=== PATIENT | female | born 1965 | race Caucasian/White ===

== ENCOUNTER 2016-07-15 01:26 | Emergency (ER) | payer BC ==
[2016-07-15] MEDS ORDERED: SODIUM CHLORIDE 0.9% 1,000 ML IV ONE (01:47)
[2016-07-15] MEDS ORDERED: PROMETHAZINE SUPPOSITORY 25 MG SUPP RECTAL STA (01:48)
[2016-07-15 02:08] LABS: Basophils # (A) 0.1 k/uL (0-0.2); Basophils % (A) 0 %; CH 29.5; CHCM 32.9; Eosinophils % (A) 0 %; HCT 40.6 % (34.0-46.0); Luc # (Auto) 0.13; Luc % (Auto) 1; Lymphocytes % (A) 14 %; MCH 28.9 pg (25.0-35.0); MCHC 32.1 g/dL (31.0-37.0); MCV 90.2 fL (80.0-100.0); Mean Platelet Volume 7.9; Monocytes # (A) 0.4 k/uL (0-1.0); Monocytes % (A) 3 %; Neutrophils # (A) 11.5 k/uL (1.3-7.7); Neutrophils % (A) 81 %; RBC 4.51 m/uL (3.80-5.40); WBC 14.1 k/uL (3.8-10.6); WBC (Perox) 13.86
[2016-07-15] MEDS ORDERED: ONDANSETRON 4 MG/2 ML VIAL IVP STA (02:15)
[2016-07-15] MEDS ORDERED: DICYCLOMINE 10 MG/ML 2 ML AMP IM STA ×2 (02:16)
[2016-07-15] MEDS ORDERED: LORazepam 2 MG/ML SYRINGE IV STA (02:16)
[2016-07-15] MEDS ORDERED: FAMOTIDINE 20 MG/2 ML VIAL IV STA (02:17)
[2016-07-15 02:18] LABS: ALT 37 U/L (9-52); AST 32 U/L (14-36); Alkaline Phosphatase 163 U/L (38-126); Amylase 120 U/L (30-110); Anion Gap 14 mmol/L; Blood Urea Nitrogen 9 mg/dL (7-17); Calcium 10.7 mg/dL (8.4-10.2); Carbon Dioxide 25 mmol/L (22-30); Chloride 107 mmol/L (98-107); Glucose 167 mg/dL (74-99); Non-African American GFR(MDRD) >60 (>60 ml/min/1.73 sqM); Potassium 3.6 mmol/L (3.5-5.1); Sodium 146 mmol/L (137-145); Total Bilirubin 0.7 mg/dL (0.2-1.3); Total Protein 9.4 g/dL (6.3-8.2)
--- NOTE | 2016-07-15 02:42 | ED ---
Nausea/Vomiting/Diarrhea HPI - General Chief complaint: Nausea/Vomiting/Diarrhea Stated complaint: vomiting Time Seen by Provider: 07/15/16 01:46 Source: patient, family, RN notes reviewed Mode of arrival: wheelchair - History of Present Illness Initial comments: Patient is a 51-year-old female presents to emergency in for evaluation of cyclic vomiting. Patient's is present with patient. Patient hesitates the patient has a history cyclic vomiting and irritable bowel syndrome. Patient 's states the patient does have episodes of abdominal pain, vomiting and diarrhea. Patient's states that patient is complaining of severe pain with nonstop vomiting and diarrhea. Patient denies recent travel outside the country. Patient denies trying new foods. Patient does admit to smoking marijuana. Patient denies chest pain or shortness of breath. Patient denies fevers or chills. - Related Data Home Medications Medication Instructions Recorded Confirmed ALPRAZolam [Xanax] 0.25 mg PO QID PRN 06/30/15 10/16/15 Acetaminophen-Codeine 300-30mg 1 - 2 tab PO Q4H PRN 06/30/15 10/16/15 [Tylenol #3] Diclofenac Sodium [Voltaren] 75 mg PO BID 06/30/15 10/16/15 Escitalopram [Lexapro] 20 mg PO DAILY 06/30/15 10/16/15 Pantoprazole [Protonix] 40 mg PO BID 06/30/15 10/16/15 Promethazine [Phenergan] 25 mg PO Q4HR PRN 06/30/15 10/16/15 Solifenacin Succinate [Vesicare] 10 mg PO DAILY 06/30/15 10/16/15 Previous Rx's Medication Instructions Recorded Ondansetron Odt [Zofran ODT] 4 mg PO Q8HR PRN #10 tab 10/17/15 Allergies Allergy/AdvReac Type Severity Reaction Status Date / Time morphine AdvReac Nausea & Verified 07/15/16 01:36 Vomiting Review of Systems ROS Statement: Those systems with pertinent positive or pertinent negative responses have been documented in the HPI. ROS Other: All systems not noted in ROS Statement are negative. Past Medical History Past Medical History: GERD/Reflux Additional Past Medical History / Comment(s): cyclic vomiting syndrome History of Any Multi-Drug Resistant Organisms: Unobtainable Past Surgical History: No Surgical Hx Reported Past Psychological History: Unable to Obtain Smoking Status: Unknown if ever smoked Past Alcohol Use History: Unable to Obtain Past Drug Use History: Unable to Obtain General Exam - General Exam Comments Initial Comments: Sitting in exam room, dry heaving. General appearance: alert, anxious Head exam: Present: atraumatic, normocephalic, normal inspection Eye exam: Present: normal appearance ENT exam: Present: normal exam Neck exam: Present: normal inspection Respiratory exam: Present: normal lung sounds bilaterally. Absent: respiratory distress Cardiovascular Exam: Present: regular rate, normal rhythm, normal heart sounds GI/Abdominal exam: Present: soft, tenderness (Diffuse), normal bowel sounds. Absent: distended, guarding, rebound, rigid Extremities exam: Present: normal inspection Back exam: Present: normal inspection Neurological exam: Present: alert, oriented X3, CN II-XII intact, normal gait Psychiatric exam: Present: normal affect, normal mood Skin exam: Present: warm, dry, intact, normal color. Absent: rash Course Vital Signs 07/15/16 07/15/16 01:34 04:14 Temperature 97.4 F L 98.1 F Pulse Rate 76 81 Respiratory 18 16 Rate Blood Pressure 137/90 106/58 O2 Sat by Pulse 98 98 Oximetry Medical Decision Making - Medical Decision Making Patient is a 51-year-old female presents emergency room for evaluation of cyclic vomiting. Patient very anxious on arrival. Patient giving medication and is feeling a lot better. Patient denies any significant pain. Patient denies any nausea. Offered further workup/imaging. Patient declined at this time and states she feels better like to be discharged home. Return parameters discussed. Case discussed Dr. Gastelum. - Lab Data Result diagrams: 07/15/16 01:45 07/15/16 01:45 Lab Results 07/15/16 07/15/16 07/15/16 Range/Units 01:45 01:45 01:45 WBC 14.1 H (3.8-10.6) k/uL RBC 4.51 (3.80-5.40) m/uL Hgb 13.0 (11.4-16.0) gm/dL Hct 40.6 (34.0-46.0) % MCV 90.2 (80.0-100.0) fL MCH 28.9 (25.0-35.0) pg MCHC 32.1 (31.0-37.0) g/dL RDW 14.0 (11.5-15.5) % Plt Count 243 (150-450) k/uL Neutrophils % 81 % Lymphocytes % 14 % Monocytes % 3 % Eosinophils % 0 % Basophils % 0 % Neutrophils # 11.5 H (1.3-7.7) k/uL Lymphocytes # 2.0 (1.0-4.8) k/uL Monocytes # 0.4 (0-1.0) k/uL Eosinophils # 0.0 (0-0.7) k/uL Basophils # 0.1 (0-0.2) k/uL Sodium 146 H (137-145) mmol/L Potassium 3.6 (3.5-5.1) mmol/L Chloride 107 (98-107) mmol/L Carbon Dioxide 25 (22-30) mmol/L Anion Gap 14 mmol/L BUN 9 (7-17) mg/dL Creatinine 0.60 (0.52-1.04) mg/dL Est GFR (MDRD) Af Amer >60 (>60 ml/min/1.73 sqM) Est GFR (MDRD) Non-Af >60 (>60 ml/min/1.73 sqM) Glucose 167 H (74-99) mg/dL Calcium 10.7 H (8.4-10.2) mg/dL Magnesium 1.9 (1.6-2.3) mg/dL Total Bilirubin 0.7 (0.2-1.3) mg/dL AST 32 (14-36) U/L ALT 37 (9-52) U/L Alkaline Phosphatase 163 H (38-126) U/L Total Protein 9.4 H (6.3-8.2) g/dL Albumin 5.1 H (3.5-5.0) g/dL Amylase 120 H (30-110) U/L Lipase 105 (23-300) U/L Disposition Clinical Impression: Cyclic vomiting syndrome Disposition: HOME SELF-CARE Condition: Good Instructions: Acute Nausea and Vomiting (ED) Additional Instructions: Continue with at home medications. Drink plenty of fluids. Please follow up with primary care provider in 1-2 days. If any new symptom arises or symptoms worsen, return to ER as soon as possible. Referrals: Dequan Allen MD [Primary Care Provider] - 1-2 days Time of Disposition: 03:47
[2016-07-15 04:21] VITALS: BP 106/58; PULSE 81; RESP 16; TEMP 98.1
== END 2016-07-15 04:17 | disposition home or self-care (01) ==
LOC: EC 01:26
DX: G43.A0 Cyclical vomiting, in migraine, not intractable (principal); Z88.5 Allergy status to narcotic agent; Z79.899 Other long term (current) drug therapy
CPT/HCPCS: 99284; 96372; 96374; 96375 ×2; 96361; 36415; 80053; 82150; 83690; 83735; 85025; J2060; J0500; J2405

== ENCOUNTER 2016-07-16 05:54 | Emergency (ER) | payer BC ==
[2016-07-16 06:03] VITALS: RESP 18
[2016-07-16] MEDS ORDERED: DICYCLOMINE 10 MG/ML 2 ML AMP IM STA (06:15)
[2016-07-16] MEDS ORDERED: SODIUM CHLORIDE 0.9% 1,000 ML IV STA (06:15)
[2016-07-16] MEDS ORDERED: ONDANSETRON 4 MG/2 ML VIAL IVP STA (06:15)
[2016-07-16] MEDS ORDERED: FAMOTIDINE 20 MG/2 ML VIAL IV STA (06:16)
[2016-07-16] MEDS ORDERED: LORazepam 2 MG/ML SYRINGE IV STA (06:16)
--- NOTE | 2016-07-16 06:19 | ED ---
General Adult HPI - General Source: patient, RN notes reviewed Mode of arrival: wheelchair Limitations: no limitations <Ezio Brand - Last Filed: 07/16/16 06:16> <Josef Motta - Last Filed: 07/16/16 09:01> - General Chief complaint: Abdominal Pain Stated complaint: VOMITING Time Seen by Provider: 07/16/16 06:05 - History of Present Illness Initial comments: Patient is a pleasant 51-year-old female presenting to the emergency department complaining of abdominal discomfort. Patient was in the emergency department yesterday with similar symptoms. Patient does have a history of cyclic vomiting. Patient has had nausea but is only dry heaving at this time. Patient has left sided abdominal discomfort. No fevers. No constipation or diarrhea. (Ezio Brand) - Related Data Home Medications Medication Instructions Recorded Confirmed ALPRAZolam [Xanax] 0.25 mg PO QID PRN 06/30/15 07/16/16 Diclofenac Sodium [Voltaren] 75 mg PO BID 06/30/15 07/16/16 Escitalopram [Lexapro] 20 mg PO DAILY 06/30/15 07/16/16 Pantoprazole [Protonix] 40 mg PO BID 06/30/15 07/16/16 Atorvastatin [Lipitor] 80 mg PO HS 07/16/16 07/16/16 Temazepam [Restoril] 15 mg PO HS PRN 07/16/16 07/16/16 Allergies Allergy/AdvReac Type Severity Reaction Status Date / Time morphine AdvReac Nausea & Verified 07/16/16 07:30 Vomiting bee stings Allergy Unknown Uncoded 07/16/16 06:03 Review of Systems ROS Other: All systems not noted in ROS Statement are negative. Constitutional: Denies: fever Eyes: Denies: eye pain ENT: Denies: ear pain Respiratory: Denies: cough Cardiovascular: Denies: chest pain Endocrine: Denies: fatigue Gastrointestinal: Reports: abdominal pain, nausea, vomiting Genitourinary: Denies: dysuria Musculoskeletal: Denies: back pain Skin: Denies: rash Neurological: Denies: weakness <Ezio Brand - Last Filed: 07/16/16 06:16> ROS Other: All systems not noted in ROS Statement are negative. <Josef Motta - Last Filed: 07/16/16 09:01> ROS Statement: Those systems with pertinent positive or pertinent negative responses have been documented in the HPI. Past Medical History Past Medical History: GERD/Reflux Additional Past Medical History / Comment(s): cyclic vomiting syndrome; IBS; Gastroparesis History of Any Multi-Drug Resistant Organisms: None Reported Past Surgical History: Appendectomy, Hysterectomy Past Psychological History: Anxiety Smoking Status: Current every day smoker Past Alcohol Use History: None Reported Past Drug Use History: None Reported <Ezio Brand - Last Filed: 07/16/16 06:16> General Exam Limitations: no limitations General appearance: alert, in no apparent distress Head exam: Present: atraumatic Eye exam: Present: normal appearance, PERRL ENT exam: Present: normal oropharynx Neck exam: Present: normal inspection Respiratory exam: Present: normal lung sounds bilaterally Cardiovascular Exam: Present: regular rate, normal rhythm Expanded Peripheral pulses: 2+: Dorsalis Pedis (R), Dorsalis Pedis (L) GI/Abdominal exam: Present: soft, tenderness (Moderate left sided tenderness), normal bowel sounds. Absent: distended, guarding, rebound, rigid, pulsatile mass Extremities exam: Present: normal inspection Neurological exam: Present: alert Psychiatric exam: Present: normal affect, normal mood Skin exam: Absent: rash <Ezio Brand - Last Filed: 07/16/16 06:16> Course <Ezio Brand - Last Filed: 07/16/16 06:16> <Josef Motta - Last Filed: 07/16/16 09:01> Vital Signs 07/16/16 07/16/16 06:00 08:57 Temperature 98.1 F 98.6 F Pulse Rate 82 70 Respiratory 18 18 Rate Blood Pressure 100/61 106/58 O2 Sat by Pulse 97 Oximetry - Reevaluation(s) Reevaluation #1: 07/16/16 06:17 Patient states symptoms are chronic and has had multiple evaluations including multiple CT scans. Patient does not want computed tomography scan at this time. Patient does not want narcotics at this time. Patient does request bentyl and something to help her relax. (Ezio Brand) Reevaluation #2: 07/16/16 09:00 At this point patient's symptoms seem to be much improved, resting comfortably ( Josef Motta) Medical Decision Making <Ezio Brand - Last Filed: 07/16/16 06:16> - Lab Data Result diagrams: 07/16/16 06:51 07/16/16 06:51 - Radiology Data Radiology results: report reviewed (X-ray KUB is negative for acute disease), image reviewed <Josef Motta - Last Filed: 07/16/16 09:01> - Medical Decision Making 51 year old female here with history of cyclic vomiting, and he was sick vomiting syndrome exacerbation, symptoms of this point improved. Patient will be discharged home, (Josef Motta) - Lab Data Lab Results 07/16/16 07/16/16 07/16/16 Range/Units 06:34 06:51 06:51 WBC 9.4 (3.8-10.6) k/uL RBC 3.97 (3.80-5.40) m/uL Hgb 11.7 (11.4-16.0) gm/dL Hct 35.9 (34.0-46.0) % MCV 90.5 (80.0-100.0) fL MCH 29.4 (25.0-35.0) pg MCHC 32.5 (31.0-37.0) g/dL RDW 14.0 (11.5-15.5) % Plt Count 216 (150-450) k/uL Neutrophils % 46 % Lymphocytes % 45 % Monocytes % 4 % Eosinophils % 2 % Basophils % 1 % Neutrophils # 4.4 (1.3-7.7) k/uL Lymphocytes # 4.3 (1.0-4.8) k/uL Monocytes # 0.4 (0-1.0) k/uL Eosinophils # 0.1 (0-0.7) k/uL Basophils # 0.1 (0-0.2) k/uL PT (9.0-12.0) sec INR (<1.1) APTT (22.0-30.0) sec Sodium 142 (137-145) mmol/L Potassium 3.9 (3.5-5.1) mmol/L Chloride 107 (98-107) mmol/L Carbon Dioxide 26 (22-30) mmol/L Anion Gap 9 mmol/L BUN 8 (7-17) mg/dL Creatinine 0.63 (0.52-1.04) mg/dL Est GFR (MDRD) Af Amer >60 (>60 ml/min/1.73 sqM) Est GFR (MDRD) Non-Af >60 (>60 ml/min/1.73 sqM) Glucose 91 (74-99) mg/dL Calcium 9.4 (8.4-10.2) mg/dL Total Bilirubin 0.5 (0.2-1.3) mg/dL AST 29 (14-36) U/L ALT 28 (9-52) U/L Alkaline Phosphatase 101 (38-126) U/L Total Protein 7.8 (6.3-8.2) g/dL Albumin 4.3 (3.5-5.0) g/dL Amylase 93 (30-110) U/L Lipase 124 (23-300) U/L Urine Color Light Yellow Urine Appearance Clear (Clear) Urine pH 6.0 (5.0-8.0) Ur Specific [place] 1.003 (1.001-1.035) Urine Protein Negative (Negative) Urine Glucose (UA) Negative (Negative) Urine Ketones Negative (Negative) Urine Blood Negative (Negative) Urine Nitrite Negative (Negative) Urine Bilirubin Negative (Negative) Urine Urobilinogen <2.0 (<2.0) mg/dL Ur Leukocyte Esterase Negative (Negative) 07/16/16 Range/Units 06:51 WBC (3.8-10.6) k/uL RBC (3.80-5.40) m/uL Hgb (11.4-16.0) gm/dL Hct (34.0-46.0) % MCV (80.0-100.0) fL MCH (25.0-35.0) pg MCHC (31.0-37.0) g/dL RDW (11.5-15.5) % Plt Count (150-450) k/uL Neutrophils % % Lymphocytes % % Monocytes % % Eosinophils % % Basophils % % Neutrophils # (1.3-7.7) k/uL Lymphocytes # (1.0-4.8) k/uL Monocytes # (0-1.0) k/uL Eosinophils # (0-0.7) k/uL Basophils # (0-0.2) k/uL PT 9.8 (9.0-12.0) sec INR 1.0 (<1.1) APTT 23.6 (22.0-30.0) sec Sodium (137-145) mmol/L Potassium (3.5-5.1) mmol/L Chloride (98-107) mmol/L Carbon Dioxide (22-30) mmol/L Anion Gap mmol/L BUN (7-17) mg/dL Creatinine (0.52-1.04) mg/dL Est GFR (MDRD) Af Amer (>60 ml/min/1.73 sqM) Est GFR (MDRD) Non-Af (>60 ml/min/1.73 sqM) Glucose (74-99) mg/dL Calcium (8.4-10.2) mg/dL Total Bilirubin (0.2-1.3) mg/dL AST (14-36) U/L ALT (9-52) U/L Alkaline Phosphatase (38-126) U/L Total Protein (6.3-8.2) g/dL Albumin (3.5-5.0) g/dL Amylase (30-110) U/L Lipase (23-300) U/L Urine Color Urine Appearance (Clear) Urine pH (5.0-8.0) Ur Specific [place] (1.001-1.035) Urine Protein (Negative) Urine Glucose (UA) (Negative) Urine Ketones (Negative) Urine Blood (Negative) Urine Nitrite (Negative) Urine Bilirubin (Negative) Urine Urobilinogen (<2.0) mg/dL Ur Leukocyte Esterase (Negative) Disposition <Ezio Brand - Last Filed: 07/16/16 06:16> <Josef Motta - Last Filed: 07/16/16 09:01> Clinical Impression: Cyclic vomiting syndrome Disposition: HOME SELF-CARE Condition: Good Instructions: Acute Nausea and Vomiting (ED) Referrals: Dequan Allen MD [Primary Care Provider] - 1-2 days
[2016-07-16 07:04] LABS: Basophils # (A) 0.1 k/uL (0-0.2); Basophils % (A) 1 %; CH 29.5; CHCM 32.8; Eosinophils # (A) 0.1 k/uL (0-0.7); Eosinophils % (A) 2 %; HCT 35.9 % (34.0-46.0); HDW 2.35; HGB 11.7 gm/dL (11.4-16.0); Luc # (Auto) 0.19; Luc % (Auto) 2; Lymphocytes # (A) 4.3 k/uL (1.0-4.8); Lymphocytes % (A) 45 %; MCH 29.4 pg (25.0-35.0); MCHC 32.5 g/dL (31.0-37.0); MCV 90.5 fL (80.0-100.0); Mean Platelet Volume 7.7; Monocytes # (A) 0.4 k/uL (0-1.0); Monocytes % (A) 4 %; Neutrophils # (A) 4.4 k/uL (1.3-7.7); Neutrophils % (A) 46 %; RBC 3.97 m/uL (3.80-5.40); WBC 9.4 k/uL (3.8-10.6); WBC (Perox) 9.78
[2016-07-16 07:04] LABS: Appearance,Urine Clear (Clear); Bilirubin,Urine Negative (Negative); Glucose,Urine (UA) Negative (Negative); Ketones,Urine Negative (Negative); Leukocyte Esterase,Urine Negative (Negative); Nitrite,Urine Negative (Negative); Protein,Urine Negative (Negative); Specific Gravity,Urine 1.003 (1.001-1.035); UA Billing (MACRO vs. MICRO) CHEM; Urobilinogen,Urine <2.0 mg/dL (<2.0)
[2016-07-16 07:09] LABS: Partial Thromboplastin Time 23.6 sec (22.0-30.0); Prothrombin Time 9.8 sec (9.0-12.0)
[2016-07-16 07:10] LABS: ALT 28 U/L (9-52); AST 29 U/L (14-36); Alkaline Phosphatase 101 U/L (38-126); Amylase 93 U/L (30-110); Anion Gap 9 mmol/L; Blood Urea Nitrogen 8 mg/dL (7-17); Calcium 9.4 mg/dL (8.4-10.2); Carbon Dioxide 26 mmol/L (22-30); Chloride 107 mmol/L (98-107); Glucose 91 mg/dL (74-99); Non-African American GFR(MDRD) >60 (>60 ml/min/1.73 sqM); Potassium 3.9 mmol/L (3.5-5.1); Sodium 142 mmol/L (137-145); Total Bilirubin 0.5 mg/dL (0.2-1.3); Total Protein 7.8 g/dL (6.3-8.2)
--- NOTE | 2016-07-16 07:36 | XR ---
EXAMINATION TYPE: XR KUB DATE OF EXAM: 07/16/2016 7:23 AM COMPARISON: 06/30/2015 HISTORY: Pain TECHNIQUE: Single supine KUB image of the abdomen is obtained FINDINGS: Small bowel demonstrates no evidence for dilatation or air fluid levels. Gas and fecal material is seen in non-distended colon. No convincing evidence for pneumoperitoneum. No unusual calcifications. The lung bases are clear. The osseous structures are intact. IMPRESSION: 1. Overall nonobstructive bowel gas pattern.
[2016-07-16] MEDS ORDERED: HYDROmorphone 1 MG/ML 1 ML SYRINGE IVP STA (08:53)
[2016-07-16] MEDS ORDERED: diphenhydrAMINE 50 MG/ML 1 ML VIAL IVP STA (08:53)
[2016-07-16 08:59] VITALS: PULSE 70
[2016-07-16 10:15] VITALS: BP 106/64; TEMP 97.8
== END 2016-07-16 10:12 | disposition home or self-care (01) ==
LOC: EC 05:54
DX: G43.A0 Cyclical vomiting, in migraine, not intractable (principal); R10.9 Unspecified abdominal pain; K21.9 Gastro-esophageal reflux disease without esophagitis; F41.9 Anxiety disorder, unspecified; F17.200 Nicotine dependence, unspecified, uncomplicated; Z79.899 Other long term (current) drug therapy; Z88.5 Allergy status to narcotic agent; Z91.030 Bee allergy status; Z90.49 Acquired absence of other specified parts of digestive tract
CPT/HCPCS: 36415; 80053; 82150; 83690; 85025; 85610; 85730; 81003; 74000; 99284; 96374; 96375 ×4; 96361; 96372; J2060; J1200; J0500; J2405; J1170

== ENCOUNTER 2017-01-19 17:32 | Emergency (ER) | payer BC, MEDICARE ==
[2017-01-19] MEDS ORDERED: METOCLOPRAMIDE 5 MG/ML 2 ML VIAL IVP STA (19:49)
[2017-01-19] MEDS ORDERED: diphenhydrAMINE 50 MG/ML 1 ML VIAL IVP STA (19:49)
[2017-01-19] MEDS ORDERED: SODIUM CHLORIDE 0.9% 1,000 ML IV STA (19:49)
[2017-01-19] MEDS ORDERED: SODIUM CHLORIDE 0.9% 2,000 ML IV STA (19:49)
[2017-01-19] MEDS ORDERED: LORazepam 2 MG/ML INJ IV STA (20:05)
[2017-01-19 21:00] LABS: Basophils # (A) 0.1 k/uL (0-0.2); Basophils % (A) 1 %; CH 29.4; CHCM 33.2; Eosinophils # (A) 0.1 k/uL (0-0.7); Eosinophils % (A) 1 %; HCT 46.3 % (34.0-46.0); HDW 2.36; HGB 15.3 gm/dL (11.4-16.0); Luc # (Auto) 0.11; Luc % (Auto) 1; Lymphocytes # (A) 2.6 k/uL (1.0-4.8); Lymphocytes % (A) 29 %; MCH 29.3 pg (25.0-35.0); MCV 88.9 fL (80.0-100.0); Mean Platelet Volume 8.3; Monocytes # (A) 0.5 k/uL (0-1.0); Monocytes % (A) 6 %; Neutrophils # (A) 5.6 k/uL (1.3-7.7); Neutrophils % (A) 62 %; RBC 5.21 m/uL (3.80-5.40); WBC (Perox) 9.25
[2017-01-19 21:17] LABS: ALT 35 U/L (9-52); AST 27 U/L (14-36); Alkaline Phosphatase 154 U/L (38-126); Amylase 83 U/L (30-110); Anion Gap 16 mmol/L; Blood Urea Nitrogen 15 mg/dL (7-17); Calcium 11.3 mg/dL (8.4-10.2); Carbon Dioxide 23 mmol/L (22-30); Chloride 104 mmol/L (98-107); Glucose 115 mg/dL (74-99); Non-African American GFR(MDRD) 51 (>60 ml/min/1.73 sqM); Sodium 143 mmol/L (137-145); Total Bilirubin 0.5 mg/dL (0.2-1.3); Total Protein 9.8 g/dL (6.3-8.2)
--- NOTE | 2017-01-19 21:25 | ED ---
Nausea/Vomiting/Diarrhea HPI - General Chief complaint: Nausea/Vomiting/Diarrhea Stated complaint: UNABLE TO URINATE, Hx CYCLIC VOMITING SYNDROME Time Seen by Provider: 01/19/17 19:48 Source: patient, RN notes reviewed, old records reviewed Mode of arrival: wheelchair Limitations: no limitations - History of Present Illness Initial comments: Patient is a 51-year-old female presents emergency Department chief complaint multiple since vomiting yesterday and today. She reports she has a history of vomiting syndrome. She states that she's also had diarrhea but that has also been something chronic. She denies any chest pain or shortness of breath, she reports that she's had multiple episodes of vomiting so therefore she's had some abdominal pain. She states that she has usually some results with a IV phenegren. She denies any other associated symptoms, denies any significant abdominal tenderness. - Related Data Home Medications Medication Instructions Recorded Confirmed ALPRAZolam [Xanax] 0.25 mg PO QID PRN 06/30/15 01/19/17 Diclofenac Sodium [Voltaren] 75 mg PO BID 06/30/15 01/19/17 Escitalopram [Lexapro] 20 mg PO DAILY 06/30/15 01/19/17 Pantoprazole [Protonix] 40 mg PO BID 06/30/15 01/19/17 Atorvastatin [Lipitor] 80 mg PO HS 07/16/16 01/19/17 Temazepam [Restoril] 15 mg PO HS PRN 07/16/16 01/19/17 Hyoscyamine Sulfate [Levsin-Sl] 0.125 mg SL BID 01/19/17 01/19/17 Promethazine HCl 25 mg PO Q4H PRN 01/19/17 01/19/17 traMADol HCL [Ultram] 50 mg PO Q4HR PRN 01/19/17 01/19/17 Allergies Allergy/AdvReac Type Severity Reaction Status Date / Time venom-honey bee Allergy Anaphylaxis Verified 01/19/17 19:47 morphine AdvReac Nausea & Verified 01/19/17 19:47 Vomiting Review of Systems ROS Statement: Those systems with pertinent positive or pertinent negative responses have been documented in the HPI. ROS Other: All systems not noted in ROS Statement are negative. Past Medical History Past Medical History: GERD/Reflux Additional Past Medical History / Comment(s): cyclic vomiting syndrome; IBS; Gastroparesis History of Any Multi-Drug Resistant Organisms: None Reported Past Surgical History: Appendectomy, Hysterectomy Past Psychological History: Anxiety Smoking Status: Current every day smoker Past Alcohol Use History: None Reported Past Drug Use History: Marijuana General Exam Limitations: no limitations Course Vital Signs 01/19/17 01/19/17 01/19/17 18:05 20:39 21:47 Temperature 98.8 F Pulse Rate 111 H 84 104 H Respiratory 16 18 20 Rate Blood Pressure 120/77 132/82 100/69 O2 Sat by Pulse 98 99 96 Oximetry 01/19/17 23:37 Temperature Pulse Rate 89 Respiratory 18 Rate Blood Pressure 109/68 O2 Sat by Pulse 99 Oximetry - Reevaluation(s) Reevaluation #1: 01/19/17 23:13 Patient was reevaluated and resting comfortably in bed at this time. Patient reports that her nausea and pain have now resolved. Patient will be waiting until she leaves us urine sample to go. Medical Decision Making - Medical Decision Making Patient is a 51-year-old female presents emergency Department chief complaint of 2 days of severe vomiting episode as well as some diarrhea. No history of sick contacts. She has history of cyclic vomiting syndrome. Patient was given 2 L of fluid, was still unable to urinate. Third unit of fluid was ordered. Patient was able to urinate into leave a urine sample at that time. Patient's labwork was reviewed and negative for any significant abnormalities. She did have a slight elevation of her creatinine, due to be this to patient's dehydration symptoms. She has no significant abdominal tenderness. Patient's KUB and chest x-ray reviewed and no significant abnormalities. Patient was reevaluated after IV Phenergan fluids and she is feeling much better at this time. Patient feels comfortable going home. Discussed the importance of following up with her primary care provider and GI specialist. Patient agrees to treatment plan will comply. Return parameters were discussed. - Lab Data Result diagrams: 01/19/17 20:32 01/19/17 20:32 Lab Results 01/19/17 01/19/17 01/19/17 Range/Units 20:32 20:32 23:24 WBC 9.0 (3.8-10.6) k/uL RBC 5.21 (3.80-5.40) m/uL Hgb 15.3 (11.4-16.0) gm/dL Hct 46.3 H (34.0-46.0) % MCV 88.9 (80.0-100.0) fL MCH 29.3 (25.0-35.0) pg MCHC 33.0 (31.0-37.0) g/dL RDW 15.0 (11.5-15.5) % Plt Count 253 (150-450) k/uL Neutrophils % 62 % Lymphocytes % 29 % Monocytes % 6 % Eosinophils % 1 % Basophils % 1 % Neutrophils # 5.6 (1.3-7.7) k/uL Lymphocytes # 2.6 (1.0-4.8) k/uL Monocytes # 0.5 (0-1.0) k/uL Eosinophils # 0.1 (0-0.7) k/uL Basophils # 0.1 (0-0.2) k/uL Sodium 143 (137-145) mmol/L Potassium 4.0 (3.5-5.1) mmol/L Chloride 104 (98-107) mmol/L Carbon Dioxide 23 (22-30) mmol/L Anion Gap 16 mmol/L BUN 15 (7-17) mg/dL Creatinine 1.13 H (0.52-1.04) mg/dL Est GFR (MDRD) Af Amer >60 (>60 ml/min/1.73 sqM) Est GFR (MDRD) Non-Af 51 (>60 ml/min/1.73 sqM) Glucose 115 H (74-99) mg/dL Calcium 11.3 H (8.4-10.2) mg/dL Total Bilirubin 0.5 (0.2-1.3) mg/dL AST 27 (14-36) U/L ALT 35 (9-52) U/L Alkaline Phosphatase 154 H (38-126) U/L Total Protein 9.8 H (6.3-8.2) g/dL Albumin 5.3 H (3.5-5.0) g/dL Amylase 83 (30-110) U/L Lipase 105 (23-300) U/L Urine Color Yellow Urine Appearance Cloudy H (Clear) Urine pH 5.5 (5.0-8.0) Ur Specific [place] 1.011 (1.001-1.035) Urine Protein 1+ H (Negative) Urine Glucose (UA) Negative (Negative) Urine Ketones Negative (Negative) Urine Blood Small H (Negative) Urine Nitrite Negative (Negative) Urine Bilirubin Negative (Negative) Urine Urobilinogen <2.0 (<2.0) mg/dL Ur Leukocyte Esterase Small H (Negative) Urine RBC 3 (0-5) /hpf Urine WBC 9 H (0-5) /hpf Ur Squamous Epith Cells 5 H (0-4) /hpf Urine Bacteria Rare H (None) /hpf Cellular Casts 13 (0) /lpf Hyaline Casts 32 H (0-2) /lpf Granular Casts 4 (0) /lpf Urine Mucus Moderate H (None) /hpf - Radiology Data Radiology results: report reviewed Chest x-ray is negative for any acute process. KUB shows overall nonspecific but favorable nonobstructive bowel gas pattern. Disposition Clinical Impression: Cyclic vomiting syndrome, Dehydration Disposition: HOME SELF-CARE Condition: Good Instructions: Acute Nausea and Vomiting (ED) Additional Instructions: Patient is to follow-up with primary care provider tomorrow. Return to the emergency department if any alarming signs or symptoms occur. Patient needs to rest, increase her fluid intake. Referrals: Dequan Allen MD [Primary Care Provider] - 1-2 days Time of Disposition: 23:45
--- NOTE | 2017-01-19 21:42 | XR ---
EXAMINATION TYPE: XR chest 2V DATE OF EXAM: 01/19/2017 COMPARISON: Chest x-ray October 17, 2015 HISTORY: Chest pain. TECHNIQUE: Frontal and lateral views of the chest are obtained. FINDINGS: There is no focal air space opacity, pleural effusion, or pneumothorax seen. The cardiac silhouette size is within normal limits. The osseous structures are intact. IMPRESSION: No acute cardiopulmonary process. No significant change from prior.
--- NOTE | 2017-01-19 21:43 | XR ---
EXAMINATION TYPE: XR KUB DATE OF EXAM: 01/19/2017 9:00 PM CLINICAL HISTORY: Nausea vomiting and diarrhea. TECHNIQUE: Two Upright KUB images of the abdomen are obtained. COMPARISON: Abdominal x-ray July 16, 2016. FINDINGS: There is some paucity of bowel gas. Visualized gas is noted in nondistended small and large bowel loops throughout the lower abdomen and pelvis. Gas is seen in nondistended stomach. Lung bases are clear. No pneumoperitoneum is present. Visualized osseous structures are intact. IMPRESSION: Overall nonspecific but favor nonobstructive bowel gas pattern.
[2017-01-19] MEDS ORDERED: PROMETHAZINE INJ 25 MG in SODIUM CHLORIDE 0.9% 50 ML IVPB STA (21:48)
[2017-01-19] MEDS ORDERED: HYDROmorphone 1 MG/ML 1 ML SYRINGE IVP STA (21:50)
[2017-01-19] MEDS ORDERED: SODIUM CHLORIDE 0.9% 1,000 ML IV ONE (22:24)
[2017-01-19 23:38] VITALS: BP 109/68; PULSE 89; RESP 18
[2017-01-19 23:39] LABS: Appearance,Urine Cloudy (Clear); Bacteria,Urine Rare /hpf; Bilirubin,Urine Negative (Negative); Glucose,Urine (UA) Negative (Negative); Granular Casts,Urine 4 /lpf (0); Ketones,Urine Negative (Negative); Leukocyte Esterase,Urine Small (Negative); Mucus,Urine Moderate /hpf; Nitrite,Urine Negative (Negative); PH, Urine 5.5 (5.0-8.0); Particle Count 9621; Protein,Urine 1+ (Negative); RBC,Urine 3 /hpf (0-5); Specific Gravity,Urine 1.011 (1.001-1.035); Squamous Epithelial Cell,Urine 5 /hpf (0-4); UA Billing (MACRO vs. MICRO) MICRO; Urobilinogen,Urine <2.0 mg/dL (<2.0); WBC,Urine 9 /hpf (0-5)
[2017-01-19 23:55] VITALS: TEMP 97.6
--- NOTE | 2017-01-22 03:36 | CDI ---
Documentation Clarification OP Dear DANNY Lynch: Please do addendum to ED report for Physical exam. Thank you, Cele [employer] Event Decorator If you have any question, Please contact coding and reimbursement specialist at [phone] [facility]
== END 2017-01-19 23:55 | disposition home or self-care (01) ==
LOC: EC 17:32
DX: G43.A0 Cyclical vomiting, in migraine, not intractable (principal); E86.0 Dehydration; K21.9 Gastro-esophageal reflux disease without esophagitis; K58.9 Irritable bowel syndrome, unspecified; F41.9 Anxiety disorder, unspecified; F17.200 Nicotine dependence, unspecified, uncomplicated; Z79.899 Other long term (current) drug therapy; Z88.5 Allergy status to narcotic agent; Z91.030 Bee allergy status; Z90.710 Acquired absence of both cervix and uterus; Z98.890 Other specified postprocedural states
CPT/HCPCS: 36415; 80053; 82150; 83690; 85025; 81001; 71020; 74000; 99284; 96374; 96375 ×4; 96361 ×3; J2060; J1200; J2550; J2765; J1170

== ENCOUNTER 2017-10-23 14:54 | Emergency (ER) | payer BC, MEDICARE ==
[2017-10-23 15:09] VITALS: TEMP 98.3
[2017-10-23] MEDS ORDERED: SODIUM CHLORIDE 0.9% 1,000 ML IV STA (16:38)
[2017-10-23] MEDS ORDERED: PROMETHAZINE INJ 25 MG in SODIUM CHLORIDE 0.9% 50 ML IVPB STA (16:39)
[2017-10-23] MEDS ORDERED: diphenhydrAMINE 50 MG/ML 1 ML VIAL IVP STA (16:39)
[2017-10-23 17:10] LABS: Appearance,Urine Clear (Clear); Bilirubin,Urine Negative (Negative); Blood,Urine Negative (Negative); Color,Urine Light Yellow; Glucose,Urine (UA) Negative (Negative); Ketones,Urine Negative (Negative); Leukocyte Esterase,Urine Negative (Negative); Nitrite,Urine Negative (Negative); Protein,Urine Negative (Negative); Specific Gravity,Urine 1.004 (1.001-1.035); Urobilinogen,Urine <2.0 mg/dL (<2.0)
[2017-10-23 17:19] LABS: Basophils # (A) 0.1 k/uL (0-0.2); Basophils % (A) 1 %; Eosinophils # (A) 0.1 k/uL (0-0.7); Eosinophils % (A) 1 %; HGB 11.5 gm/dL (11.4-16.0); Lymphocytes # (A) 2.8 k/uL (1.0-4.8); Lymphocytes % (A) 42 %; MCHC 32.8 g/dL (31.0-37.0); MCV 85.3 fL (80.0-100.0); Mean Platelet Volume 7.4; Monocytes # (A) 0.3 k/uL (0-1.0); Monocytes % (A) 4 %; Neutrophils # (A) 3.4 k/uL (1.3-7.7); Neutrophils % (A) 51 %; Platelet Count 247 k/uL (150-450); RBC 4.11 m/uL (3.80-5.40); RDW 14.1 % (11.5-15.5); WBC 6.7 k/uL (3.8-10.6)
--- NOTE | 2017-10-23 17:20 | ED ---
Abdominal Pain HPI - General Chief Complaint: Abdominal Pain Stated Complaint: GI Bleed, Abd Pain Time Seen by Provider: 10/23/17 16:17 Source: patient Mode of arrival: wheelchair Limitations: no limitations - History of Present Illness Initial Comments: 52-year-old female patient with past medical history significant for gastroparesis and cyclical vomiting syndrome presents to the emergency department today for complaints of lower abdominal pain, constipation, and vomiting. Patient states that she has been having increasing issues over the last 3 weeks. Patient states over the last week her symptoms haven't getting worse. Patient states that last night she did administer 2 Fleet enemas. States that she did have output of liquid stool with presence of bright red blood. Patient states she does have a hemorrhoid. Patient denies any significant increase in her pain after the enema administration. States that she has not had a normal bowel movement for the last week. States that her stool is generally pasty and is never formed. States that she has had some urinary urgency and frequency. Patient denies any fevers or chills with this. States she has had several vomiting episodes today. Patient states that she tries to avoid taking her home pain medications due to issues with her bowels. Denies any chest pain, shortness of breath, palpitations, dizziness, or weakness. Patient denies any recent rash, back pain, numbness, tingling, dizziness, weakness, hematuria, dysuria, headache, visual changes, or any other complaints. - Related Data Home Medications Medication Instructions Recorded Confirmed ALPRAZolam [Xanax] 0.25 mg PO QID PRN 06/30/15 01/19/17 Diclofenac Sodium [Voltaren] 75 mg PO BID 06/30/15 01/19/17 Escitalopram [Lexapro] 20 mg PO DAILY 06/30/15 01/19/17 Pantoprazole [Protonix] 40 mg PO BID 06/30/15 01/19/17 Atorvastatin [Lipitor] 80 mg PO HS 07/16/16 01/19/17 Temazepam [Restoril] 15 mg PO HS PRN 07/16/16 01/19/17 Hyoscyamine Sulfate [Levsin-Sl] 0.125 mg SL BID 01/19/17 01/19/17 Promethazine HCl 25 mg PO Q4H PRN 01/19/17 01/19/17 traMADol HCL [Ultram] 50 mg PO Q4HR PRN 01/19/17 01/19/17 Allergies Allergy/AdvReac Type Severity Reaction Status Date / Time venom-honey bee Allergy Anaphylaxis Verified 01/19/17 19:47 morphine AdvReac Nausea & Verified 01/19/17 19:47 Vomiting Review of Systems ROS Statement: Those systems with pertinent positive or pertinent negative responses have been documented in the HPI. ROS Other: All systems not noted in ROS Statement are negative. Past Medical History Past Medical History: GERD/Reflux Additional Past Medical History / Comment(s): cyclic vomiting syndrome; IBS; Gastroparesis History of Any Multi-Drug Resistant Organisms: None Reported Past Surgical History: Appendectomy, Hysterectomy Past Psychological History: Anxiety Smoking Status: Current every day smoker Past Alcohol Use History: None Reported Past Drug Use History: Marijuana General Exam Limitations: no limitations General appearance: alert, in no apparent distress, other (This is a well- developed, well-nourished adult female patient in no acute distress. Vital signs upon presentation are temperature 98.3F, pulse 100, respirations 20, blood pressure 110/56, pulse ox 100% on room air.) Eye exam: Present: normal appearance, PERRL, EOMI. Absent: scleral icterus, conjunctival injection, periorbital swelling ENT exam: Present: normal exam, normal oropharynx, mucous membranes moist Respiratory exam: Present: normal lung sounds bilaterally. Absent: respiratory distress, wheezes, rales, rhonchi, stridor Cardiovascular Exam: Present: regular rate, normal rhythm, normal heart sounds. Absent: systolic murmur, diastolic murmur, rubs, gallop, clicks GI/Abdominal exam: Present: soft, tenderness (Mild left lower quadrant tenderness), normal bowel sounds. Absent: distended, guarding, rebound, rigid Rectal exam: Present: normal inspection, hemorrhoids. Absent: bloody stool Back exam: Present: normal inspection. Absent: CVA tenderness (R), CVA tenderness (L) Neurological exam: Present: alert, oriented X3, CN II-XII intact Psychiatric exam: Present: normal affect, normal mood Skin exam: Present: warm, dry, intact, normal color. Absent: rash Course Vital Signs 10/23/17 10/23/17 10/23/17 15:06 17:53 19:06 Temperature 98.3 F Pulse Rate 100 75 86 Respiratory 20 16 18 Rate Blood Pressure 110/56 118/65 142/83 O2 Sat by Pulse 100 98 98 Oximetry Medical Decision Making - Medical Decision Making 52-year-old female patient presents to the emergency department today for complaints of lower abdominal discomfort and vomiting. Physical examination did reveal some lower abdominal tenderness, round, no guarding. Labs reviewed and were unremarkable. KUB x-ray of the abdomen was obtained and showed overall nonspecific bowel gas pattern. Patient does have history of cyclic vomiting syndrome and IBS, she reports that her symptoms are similar to her previous exacerbations. Did perform rectal examination due to complaints of bright red blood in her stool, there was evidence of hemorrhoid, nonthrombosed. Upon reevaluation patient is feeling better after receiving IV fluids and nausea medication in the department. She does have a GI specialist that she follows with outpatient. She is instructed to follow-up with both her primary care physician and her GI specialist. Return parameters were discussed in detail. She verbalizes understanding and agrees this plan. - Lab Data Result diagrams: 10/23/17 16:51 10/23/17 16:51 Lab Results 10/23/17 10/23/17 10/23/17 Range/Units 16:51 16:51 16:51 WBC 6.7 (3.8-10.6) k/uL RBC 4.11 (3.80-5.40) m/uL Hgb 11.5 (11.4-16.0) gm/dL Hct 35.0 (34.0-46.0) % MCV 85.3 (80.0-100.0) fL MCH 28.0 (25.0-35.0) pg MCHC 32.8 (31.0-37.0) g/dL RDW 14.1 (11.5-15.5) % Plt Count 247 (150-450) k/uL Neutrophils % 51 % Lymphocytes % 42 % Monocytes % 4 % Eosinophils % 1 % Basophils % 1 % Neutrophils # 3.4 (1.3-7.7) k/uL Lymphocytes # 2.8 (1.0-4.8) k/uL Monocytes # 0.3 (0-1.0) k/uL Eosinophils # 0.1 (0-0.7) k/uL Basophils # 0.1 (0-0.2) k/uL Sodium 143 (137-145) mmol/L Potassium 3.9 (3.5-5.1) mmol/L Chloride 107 (98-107) mmol/L Carbon Dioxide 28 (22-30) mmol/L Anion Gap 8 mmol/L BUN 5 L (7-17) mg/dL Creatinine 0.60 (0.52-1.04) mg/dL Est GFR (CKD-EPI)AfAm >90 (>60 ml/min/1.73 sqM) Est GFR (CKD-EPI)NonAf >90 (>60 ml/min/1.73 sqM) Glucose 108 H (74-99) mg/dL Calcium 9.8 (8.4-10.2) mg/dL Total Bilirubin 0.3 (0.2-1.3) mg/dL AST 24 (14-36) U/L ALT 30 (9-52) U/L Alkaline Phosphatase 121 (38-126) U/L Total Protein 7.9 (6.3-8.2) g/dL Albumin 4.2 (3.5-5.0) g/dL Amylase 78 (30-110) U/L Lipase 107 (23-300) U/L Urine Color Light Yellow Urine Appearance Clear (Clear) Urine pH 7.0 (5.0-8.0) Ur Specific [place] 1.004 (1.001-1.035) Urine Protein Negative (Negative) Urine Glucose (UA) Negative (Negative) Urine Ketones Negative (Negative) Urine Blood Negative (Negative) Urine Nitrite Negative (Negative) Urine Bilirubin Negative (Negative) Urine Urobilinogen <2.0 (<2.0) mg/dL Ur Leukocyte Esterase Negative (Negative) - Radiology Data Radiology results: report reviewed, image reviewed To upper views of the abdomen are obtained. Bowel gas pattern is normal. There is no sign of intestinal obstruction or pneumoperitoneum. Fecal pattern is normal. Lung bases are clear. Impression by Dr. Ferrara shows an acute abdomen with no change. Disposition Clinical Impression: Abdominal pain Disposition: HOME SELF-CARE Condition: Good Instructions: Abdominal Pain (ED) Additional Instructions: Increase fluids. Take home pain medications and nausea medications as directed. Follow-up with your primary care physician for recheck tomorrow. 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 Return here immediately for any new, worsening, or concerning symptoms. Is patient prescribed a controlled substance at d/c from ED?: No Referrals: Dequan Allen MD [Primary Care Provider] - 1-2 days Time of Disposition: 18:05
[2017-10-23 17:22] LABS: ALT 30 U/L (9-52); AST 24 U/L (14-36); Albumin 4.2 g/dL (3.5-5.0); Alkaline Phosphatase 121 U/L (38-126); Amylase 78 U/L (30-110); Anion Gap 8 mmol/L; Blood Urea Nitrogen 5 mg/dL (7-17); Calcium 9.8 mg/dL (8.4-10.2); Carbon Dioxide 28 mmol/L (22-30); Chloride 107 mmol/L (98-107); Glucose 108 mg/dL (74-99); Lipase 107 U/L (23-300); Potassium 3.9 mmol/L (3.5-5.1); Sodium 143 mmol/L (137-145); Total Bilirubin 0.3 mg/dL (0.2-1.3); Total Protein 7.9 g/dL (6.3-8.2)
--- NOTE | 2017-10-23 17:44 | XR ---
EXAMINATION TYPE: XR KUB DATE OF EXAM: 10/23/2017 COMPARISON: 07/16/2016 HISTORY: Nausea and vomiting TECHNIQUE: 2 views upright FINDINGS: Bowel gas pattern is normal. There is no sign of intestinal obstruction or pneumoperitoneum . Fecal pattern is normal. Lung bases are clear. IMPRESSION: Nonacute abdomen. No change.
[2017-10-23] MEDS ORDERED: METOCLOPRAMIDE 5 MG/ML 2 ML VIAL IVP STA (18:02)
[2017-10-23 19:07] VITALS: BP 142/83; PULSE 86; RESP 18
== END 2017-10-23 19:07 | disposition home or self-care (01) ==
LOC: EC 14:54
DX: R10.30 Lower abdominal pain, unspecified (principal); K64.8 Other hemorrhoids; R11.10 Vomiting, unspecified; K21.9 Gastro-esophageal reflux disease without esophagitis; F41.9 Anxiety disorder, unspecified; F17.200 Nicotine dependence, unspecified, uncomplicated; Z90.49 Acquired absence of other specified parts of digestive tract; Z90.710 Acquired absence of both cervix and uterus; Z87.19 Personal history of other diseases of the digestive system; Z79.1 Long term (current) use of non-steroidal anti-inflammatories (NSAID); Z79.899 Other long term (current) drug therapy; Z91.030 Bee allergy status; Z88.5 Allergy status to narcotic agent
CPT/HCPCS: 36415; 80053; 82150; 83690; 85025; 81003; 74018; 99284; 96374; 96375 ×2; 96361; J1200; J2550; J2765

== ENCOUNTER 2017-12-09 16:01 | Emergency (ER) | payer BC, MEDICARE ==
[2017-12-09] MEDS ORDERED: diphenhydrAMINE 50 MG/ML 1 ML VIAL IVP STA (17:20)
[2017-12-09] MEDS ORDERED: SODIUM CHLORIDE 0.9% 2,000 ML IV STA (17:20)
[2017-12-09] MEDS ORDERED: KETOROLAC 30 MG/ML 1 ML VIAL IVP STA (17:20)
[2017-12-09] MEDS ORDERED: PROMETHAZINE INJ 25 MG in SODIUM CHLORIDE 0.9% 50 ML IVPB STA (17:22)
--- NOTE | 2017-12-09 17:27 | ED ---
General Adult HPI - General Chief complaint: Nausea/Vomiting/Diarrhea Stated complaint: Vomiting, anxiety Time Seen by Provider: 12/09/17 17:06 Source: patient Mode of arrival: wheelchair Limitations: no limitations - History of Present Illness Initial comments: 52-year-old female with past medical history of cyclic vomiting syndrome, GERD, IBS, gastroparesis presents to the emergency department with a chief complaint of vomiting 3 days. Patient states she is experiencing an exacerbation of her cyclic vomiting syndrome. She states this is consistent with past occurrences. Patient states she has mild abdominal pain consistent with past occurrences generalized in the abdomen. Patient denies noticing any blood in the vomit or stool. Patient states she generally gets relief with IV drip Phenergan and fluids here in the emergency department. Patient states she has been following up for this with GI specialists. She states she also feels anxious which generally happens when she begins to have these episodes. Patient denies any chance of and states she has had a total hysterectomy in the past. Patient denies any fevers or chills at home.Patient has no other complaints at this time including shortness of breath, chest pain, abdominal pain, nausea or vomiting, headache, or visual changes. - Related Data Home Medications Medication Instructions Recorded Confirmed ALPRAZolam [Xanax] 0.25 mg PO QID PRN 06/30/15 01/19/17 Diclofenac Sodium [Voltaren] 75 mg PO BID 06/30/15 01/19/17 Escitalopram [Lexapro] 20 mg PO DAILY 06/30/15 01/19/17 Pantoprazole [Protonix] 40 mg PO BID 06/30/15 01/19/17 Atorvastatin [Lipitor] 80 mg PO HS 07/16/16 01/19/17 Temazepam [Restoril] 15 mg PO HS PRN 07/16/16 01/19/17 Hyoscyamine Sulfate [Levsin-Sl] 0.125 mg SL BID 01/19/17 01/19/17 Promethazine HCl 25 mg PO Q4H PRN 01/19/17 01/19/17 traMADol HCL [Ultram] 50 mg PO Q4HR PRN 01/19/17 01/19/17 Allergies Allergy/AdvReac Type Severity Reaction Status Date / Time venom-honey bee Allergy Anaphylaxis Verified 12/09/17 16:12 morphine AdvReac Nausea & Verified 12/09/17 16:12 Vomiting Review of Systems ROS Statement: Those systems with pertinent positive or pertinent negative responses have been documented in the HPI. ROS Other: All systems not noted in ROS Statement are negative. Past Medical History Past Medical History: GERD/Reflux Additional Past Medical History / Comment(s): cyclic vomiting syndrome; IBS; Gastroparesis History of Any Multi-Drug Resistant Organisms: None Reported Past Surgical History: Appendectomy, Hysterectomy Past Psychological History: Anxiety Smoking Status: Current every day smoker Past Alcohol Use History: None Reported Past Drug Use History: Marijuana General Exam Limitations: no limitations General appearance: alert, in no apparent distress Head exam: Present: atraumatic, normocephalic, normal inspection Eye exam: Present: normal appearance, PERRL, EOMI. Absent: scleral icterus, conjunctival injection, periorbital swelling ENT exam: Present: normal exam, normal oropharynx, mucous membranes moist, normal external ear exam Neck exam: Present: normal inspection, full ROM. Absent: tenderness, meningismus, lymphadenopathy Respiratory exam: Present: normal lung sounds bilaterally. Absent: respiratory distress, wheezes, rales, rhonchi, stridor Cardiovascular Exam: Present: regular rate, normal rhythm, normal heart sounds. Absent: systolic murmur, diastolic murmur, rubs, gallop, clicks GI/Abdominal exam: Present: soft, tenderness (minimal abdominal tenderness generalized throughout abdomen, no gaurding or rebound), normal bowel sounds, other (Negative Dorman sign, negative obturator and psoas signs. No McBurney point tenderness). Absent: distended, guarding, rebound, rigid Neurological exam: Present: alert, oriented X3, CN II-XII intact Psychiatric exam: Present: normal affect, normal mood Skin exam: Present: warm, dry, intact, normal color. Absent: rash Course Vital Signs 12/09/17 12/09/17 16:09 19:37 Temperature 97.5 F L 98.1 F Pulse Rate 96 87 Respiratory 16 18 Rate Blood Pressure 113/75 134/75 O2 Sat by Pulse 98 89 L Oximetry - Reevaluation(s) Reevaluation #1: 12/09/17 1850: Patient states she is feeling much better. She states her nausea has almost completely resolved and pain has resolved completely. Patient does agree to return to see if that further resolves her nausea. She states she is ready to go home. Medical Decision Making - Medical Decision Making 52-year-old female presents to the emergency department for a chief complaint of vomiting 3 days. Patient states this is related to her diagnosis of cyclic vomiting syndrome. Patient has vomited multiple times but is not sure how many. Patient has been able to keep down some fluids at home. Vitals are stable with blood pressure 113/75 and a pulse rate of 96. On exam patient is well-appearing. She is sitting up in bed and responsive. Minimal abdominal generalized tenderness which she states is consistent with past episodes of cyclic vomiting syndrome. Patient states she only gets relief with IV Phenergan. CBC and CMP unremarkable. Amylase and lipase are unremarkable. Urine does not show any evidence of infection but does have trace blood noted. XR KUB reviewed at 1844 shows no sign of intestinal obstruction or pneumoperitoneum. Fecal pattern is normal. On reevaluation, Patient states she is feeling much better. She states her nausea has almost completely resolved and pain has resolved completely. Patient does agree to Zofran to see if that further resolves her nausea. She states she is ready to go home. I did discuss that if patient has worsening pain to return to the emergency department immediately for a CAT scan. At this time however pain is completely resolved and as pain is consistent with past episodes patient does not want a CT at this time. Discussed with Dr Motta - Lab Data Result diagrams: 12/09/17 17:47 12/09/17 17:47 Lab Results 12/09/17 12/09/17 12/09/17 Range/Units 17:47 17:47 17:47 WBC 6.9 (3.8-10.6) k/uL RBC 4.26 (3.80-5.40) m/uL Hgb 11.7 (11.4-16.0) gm/dL Hct 37.3 (34.0-46.0) % MCV 87.4 (80.0-100.0) fL MCH 27.4 (25.0-35.0) pg MCHC 31.3 (31.0-37.0) g/dL RDW 14.2 (11.5-15.5) % Plt Count 197 (150-450) k/uL Neutrophils % 53 % Lymphocytes % 39 % Monocytes % 4 % Eosinophils % 1 % Basophils % 1 % Neutrophils # 3.7 (1.3-7.7) k/uL Lymphocytes # 2.7 (1.0-4.8) k/uL Monocytes # 0.3 (0-1.0) k/uL Eosinophils # 0.1 (0-0.7) k/uL Basophils # 0.1 (0-0.2) k/uL Sodium 141 (137-145) mmol/L Potassium 4.2 (3.5-5.1) mmol/L Chloride 106 (98-107) mmol/L Carbon Dioxide 26 (22-30) mmol/L Anion Gap 9 mmol/L BUN 10 (7-17) mg/dL Creatinine 0.59 (0.52-1.04) mg/dL Est GFR (CKD-EPI)AfAm >90 (>60 ml/min/1.73 sqM) Est GFR (CKD-EPI)NonAf >90 (>60 ml/min/1.73 sqM) Glucose 89 (74-99) mg/dL Calcium 9.8 (8.4-10.2) mg/dL Total Bilirubin 0.3 (0.2-1.3) mg/dL AST 34 (14-36) U/L ALT 27 (9-52) U/L Alkaline Phosphatase 119 (38-126) U/L Total Protein 7.8 (6.3-8.2) g/dL Albumin 4.2 (3.5-5.0) g/dL Amylase 100 (30-110) U/L Lipase 127 (23-300) U/L Urine Color Yellow Urine Appearance Clear (Clear) Urine pH 6.5 (5.0-8.0) Ur Specific [place] 1.009 (1.001-1.035) Urine Protein Negative (Negative) Urine Glucose (UA) Negative (Negative) Urine Ketones Negative (Negative) Urine Blood Trace H (Negative) Urine Nitrite Negative (Negative) Urine Bilirubin Negative (Negative) Urine Urobilinogen <2.0 (<2.0) mg/dL Ur Leukocyte Esterase Negative (Negative) Urine RBC 3 (0-5) /hpf Urine WBC <1 (0-5) /hpf Urine Mucus Rare H (None) /hpf Disposition Clinical Impression: Nausea & vomiting Disposition: HOME SELF-CARE Condition: Good Instructions: Acute Nausea and Vomiting (ED), Cyclic Vomiting Syndrome (ED) Additional Instructions: Please follow up with primary care or GI specialist in 1-2 days. Return to the emergency department if you have any worsening symptoms or increased pain. Is patient prescribed a controlled substance at d/c from ED?: No Referrals: Dequan Allen MD [Primary Care Provider] - 1-2 days Time of Disposition: 19:26
[2017-12-09 18:02] LABS: Basophils # (A) 0.1 k/uL (0-0.2); Basophils % (A) 1 %; Eosinophils # (A) 0.1 k/uL (0-0.7); Eosinophils % (A) 1 %; HCT 37.3 % (34.0-46.0); HGB 11.7 gm/dL (11.4-16.0); Lymphocytes # (A) 2.7 k/uL (1.0-4.8); Lymphocytes % (A) 39 %; MCH 27.4 pg (25.0-35.0); MCHC 31.3 g/dL (31.0-37.0); MCV 87.4 fL (80.0-100.0); Mean Platelet Volume 8.3; Monocytes # (A) 0.3 k/uL (0-1.0); Monocytes % (A) 4 %; Neutrophils # (A) 3.7 k/uL (1.3-7.7); Neutrophils % (A) 53 %; Platelet Count 197 k/uL (150-450); RBC 4.26 m/uL (3.80-5.40); RDW 14.2 % (11.5-15.5); WBC 6.9 k/uL (3.8-10.6)
[2017-12-09 18:10] LABS: Appearance,Urine Clear (Clear); Bilirubin,Urine Negative (Negative); Blood,Urine Trace (Negative); Color,Urine Yellow; Glucose,Urine (UA) Negative (Negative); Ketones,Urine Negative (Negative); Leukocyte Esterase,Urine Negative (Negative); Mucus,Urine Rare /hpf; Nitrite,Urine Negative (Negative); PH, Urine 6.5 (5.0-8.0); Protein,Urine Negative (Negative); RBC,Urine 3 /hpf (0-5); Specific Gravity,Urine 1.009 (1.001-1.035); Urobilinogen,Urine <2.0 mg/dL (<2.0); WBC,Urine <1 /hpf (0-5)
--- NOTE | 2017-12-09 18:29 | XR ---
EXAMINATION TYPE: XR KUB DATE OF EXAM: 12/09/2017 COMPARISON: 10/23/2017 HISTORY: Abdominal pain TECHNIQUE: Single view FINDINGS: Upright view shows no sign of intestinal obstruction or pneumoperitoneum. Fecal pattern is normal. There are no pathologic calcifications over the kidneys. Lung bases are clear. IMPRESSION: Nonacute abdomen. No change.
[2017-12-09 18:34] LABS: ALT 27 U/L (9-52); AST 34 U/L (14-36); Albumin 4.2 g/dL (3.5-5.0); Alkaline Phosphatase 119 U/L (38-126); Amylase 100 U/L (30-110); Anion Gap 9 mmol/L; Blood Urea Nitrogen 10 mg/dL (7-17); Calcium 9.8 mg/dL (8.4-10.2); Carbon Dioxide 26 mmol/L (22-30); Chloride 106 mmol/L (98-107); Glucose 89 mg/dL (74-99); Lipase 127 U/L (23-300); Potassium 4.2 mmol/L (3.5-5.1); Sodium 141 mmol/L (137-145); Total Bilirubin 0.3 mg/dL (0.2-1.3); Total Protein 7.8 g/dL (6.3-8.2)
[2017-12-09] MEDS ORDERED: ONDANSETRON 4 MG/2 ML VIAL IVP STA (18:57)
[2017-12-09 19:38] VITALS: BP 134/75; PULSE 87; RESP 18; TEMP 98.1
== END 2017-12-09 19:40 | disposition home or self-care (01) ==
LOC: EC 16:01
DX: R11.2 Nausea with vomiting, unspecified (principal); R10.84 Generalized abdominal pain; F41.9 Anxiety disorder, unspecified; K21.9 Gastro-esophageal reflux disease without esophagitis; K58.9 Irritable bowel syndrome, unspecified; F17.200 Nicotine dependence, unspecified, uncomplicated; Z87.19 Personal history of other diseases of the digestive system; Z90.49 Acquired absence of other specified parts of digestive tract; Z90.710 Acquired absence of both cervix and uterus; Z79.1 Long term (current) use of non-steroidal anti-inflammatories (NSAID); Z79.899 Other long term (current) drug therapy; Z91.030 Bee allergy status; Z88.5 Allergy status to narcotic agent
CPT/HCPCS: 99284; 96374; 96375 ×3; 96361; 36415; 80053; 82150; 83690; 85025; 81001; 74018; J1200; J2550; J2405; J1885

== ENCOUNTER 2018-02-21 04:38 | Emergency (ER) | payer BC, MEDICARE ==
[2018-02-21 04:42] VITALS: TEMP 97.6
[2018-02-21] MEDS ORDERED: ONDANSETRON 4 MG/2 ML VIAL IVP STA (05:02)
[2018-02-21 05:24] LABS: Basophils # (A) 0.1 k/uL (0-0.2); Basophils % (A) 0 %; Eosinophils # (A) 0.1 k/uL (0-0.7); Eosinophils % (A) 1 %; HCT 37.4 % (34.0-46.0); HGB 12.2 gm/dL (11.4-16.0); Lymphocytes # (A) 2.3 k/uL (1.0-4.8); Lymphocytes % (A) 19 %; MCH 28.2 pg (25.0-35.0); MCHC 32.6 g/dL (31.0-37.0); MCV 86.6 fL (80.0-100.0); Monocytes # (A) 0.4 k/uL (0-1.0); Monocytes % (A) 4 %; Neutrophils # (A) 9.4 k/uL (1.3-7.7); Neutrophils % (A) 76 %; Platelet Count 219 k/uL (150-450); RBC 4.32 m/uL (3.80-5.40); RDW 14.8 % (11.5-15.5); WBC 12.4 k/uL (3.8-10.6)
[2018-02-21] MEDS ORDERED: PROMETHAZINE INJ 25 MG in SODIUM CHLORIDE 0.9% 50 ML IVPB STA (05:24)
[2018-02-21 05:29] LABS: ALT 27 U/L (9-52); AST 29 U/L (14-36); Albumin 4.2 g/dL (3.5-5.0); Alkaline Phosphatase 134 U/L (38-126); Amylase 100 U/L (30-110); Anion Gap 8 mmol/L; Blood Urea Nitrogen 11 mg/dL (7-17); Calcium 9.8 mg/dL (8.4-10.2); Carbon Dioxide 25 mmol/L (22-30); Chloride 108 mmol/L (98-107); Glucose 143 mg/dL (74-99); Lipase 124 U/L (23-300); Sodium 141 mmol/L (137-145); Total Bilirubin 0.3 mg/dL (0.2-1.3); Total Protein 7.9 g/dL (6.3-8.2)
--- NOTE | 2018-02-21 05:32 | ED ---
Nausea/Vomiting/Diarrhea HPI - General Source: patient Mode of arrival: ambulatory Limitations: no limitations - History of Present Illness MD complaint: nausea, vomiting Onset/Timin -: hour(s) Description of Vomiting: food contents Associated Abdominal Pain: Yes Location: epigastric Radiation: none Severity: moderate Quality: cramping Consistency: constant Improves with: none Worsens with: none Associated Symptoms: nausea/vomiting <Venkatesh Kyle - Last Filed: 02/21/18 05:26> <Josef Motta - Last Filed: 02/21/18 08:42> - General Chief complaint: Nausea/Vomiting/Diarrhea Stated complaint: Vomiting, Abd Pain Time Seen by Provider: 02/21/18 05:02 - History of Present Illness Initial comments: This patient is a 52-year-old woman presenting to be evaluated for vomiting. Patient states she has history of cyclic vomiting syndrome, and states that today's symptoms are similar to previous episodes. They state that she has a flareup of this every few months. Patient has had a number of episodes of vomiting. They're not seeing any blood. Today she is also having a little bit of epigastric discomfort when the retching. She denies change in bowel movements. No fever or chills. She states that IV piggyback of Phenergan usually helps to relieve the symptoms. (Venkatesh Kyle) - Related Data Home Medications Medication Instructions Recorded Confirmed ALPRAZolam [Xanax] 0.25 mg PO QID 06/30/15 02/21/18 Escitalopram [Lexapro] 20 mg PO DAILY 06/30/15 02/21/18 Pantoprazole [Protonix] 40 mg PO BID 06/30/15 02/21/18 Atorvastatin [Lipitor] 80 mg PO HS 07/16/16 02/21/18 Temazepam [Restoril] 15 mg PO HS PRN 07/16/16 02/21/18 Hyoscyamine Sulfate [Levsin-Sl] 0.125 mg SL BID 01/19/17 02/21/18 Promethazine HCl 25 mg PO Q4H PRN 01/19/17 02/21/18 traMADol HCL [Ultram] 50 mg PO Q4HR PRN 01/19/17 02/21/18 Allergies Allergy/AdvReac Type Severity Reaction Status Date / Time venom-honey bee Allergy Anaphylaxis Verified 02/21/18 07:47 morphine AdvReac Nausea & Verified 02/21/18 07:47 Vomiting Review of Systems ROS Other: All systems not noted in ROS Statement are negative. Constitutional: Denies: fever, weakness Respiratory: Denies: cough, dyspnea Cardiovascular: Denies: chest pain, palpitations, edema Gastrointestinal: Reports: abdominal pain, nausea, vomiting. Denies: diarrhea, constipation, melena, hematochezia Musculoskeletal: Denies: back pain Skin: Denies: rash Neurological: Denies: headache, weakness, numbness <Venkatesh Kyle - Last Filed: 02/21/18 05:26> ROS Other: All systems not noted in ROS Statement are negative. <Josef Motta - Last Filed: 02/21/18 08:42> ROS Statement: Those systems with pertinent positive or pertinent negative responses have been documented in the HPI. Past Medical History Past Medical History: GERD/Reflux Additional Past Medical History / Comment(s): cyclic vomiting syndrome; IBS; Gastroparesis History of Any Multi-Drug Resistant Organisms: None Reported Past Surgical History: Appendectomy, Hysterectomy Past Psychological History: Anxiety Smoking Status: Current every day smoker Past Alcohol Use History: None Reported Past Drug Use History: Marijuana <Venkatesh Kyle - Last Filed: 02/21/18 05:26> General Exam Limitations: no limitations General appearance: alert, in no apparent distress Head exam: Present: atraumatic, normocephalic Eye exam: Present: normal appearance. Absent: scleral icterus, conjunctival injection ENT exam: Present: mucous membranes dry Neck exam: Present: normal inspection Respiratory exam: Present: normal lung sounds bilaterally. Absent: respiratory distress, wheezes, rales, rhonchi, stridor Cardiovascular Exam: Present: regular rate, normal rhythm, normal heart sounds. Absent: systolic murmur, diastolic murmur, rubs, gallop GI/Abdominal exam: Present: soft, hypoactive bowel sounds. Absent: distended, tenderness, guarding, rebound, rigid, mass, pulsatile mass, hernia Extremities exam: Present: normal inspection, normal capillary refill. Absent: pedal edema, calf tenderness Back exam: Present: normal inspection. Absent: CVA tenderness (R), CVA tenderness (L) Neurological exam: Present: alert Skin exam: Present: warm, dry, intact, normal color. Absent: rash <AnabellaVenkatesh - Last Filed: 02/21/18 05:26> General appearance: alert, in no apparent distress Head exam: Present: atraumatic, normocephalic, normal inspection Eye exam: Present: normal appearance, PERRL, EOMI. Absent: scleral icterus, conjunctival injection, periorbital swelling ENT exam: Present: normal exam, mucous membranes moist Neck exam: Present: normal inspection. Absent: tenderness, meningismus, lymphadenopathy Respiratory exam: Present: normal lung sounds bilaterally. Absent: respiratory distress, wheezes, rales, rhonchi, stridor Cardiovascular Exam: Present: regular rate, normal rhythm, normal heart sounds. Absent: systolic murmur, diastolic murmur, rubs, gallop, clicks GI/Abdominal exam: Present: soft, normal bowel sounds. Absent: distended, tenderness, guarding, rebound, rigid Extremities exam: Present: normal inspection, full ROM, normal capillary refill. Absent: tenderness, pedal edema, joint swelling, calf tenderness Back exam: Present: normal inspection Neurological exam: Present: alert, oriented X3, CN II-XII intact Psychiatric exam: Present: normal affect, normal mood Skin exam: Present: warm, dry, intact, normal color. Absent: rash <Josef Motta - Last Filed: 02/21/18 08:42> Course <AnabellaVenkatesh - Last Filed: 02/21/18 05:26> <Josef Motta - Last Filed: 02/21/18 08:42> Vital Signs 02/21/18 02/21/18 04:39 06:31 Temperature 97.6 F Pulse Rate 86 88 Respiratory 16 18 Rate Blood Pressure 105/71 147/82 O2 Sat by Pulse 97 99 Oximetry - Reevaluation(s) Reevaluation #1: 02/21/18 08:41 Patient continues to feel better. Okay for discharge (Josef Motta) Medical Decision Making <Venkatesh Kyle - Last Filed: 02/21/18 05:26> - Lab Data Result diagrams: 02/21/18 04:56 02/21/18 04:56 - Radiology Data Radiology results: report reviewed (CT abdomen pelvis negative for acute disease ), image reviewed <Josef Motta - Last Filed: 02/21/18 08:42> - Medical Decision Making 52 female the ER for evaluation of nausea vomiting, patient's symptoms completely resolved and can be discharged home (Josef Motta) - Lab Data Lab Results 02/21/18 02/21/18 02/21/18 Range/Units 04:56 04:56 07:31 WBC 12.4 H (3.8-10.6) k/uL RBC 4.32 (3.80-5.40) m/uL Hgb 12.2 (11.4-16.0) gm/dL Hct 37.4 (34.0-46.0) % MCV 86.6 (80.0-100.0) fL MCH 28.2 (25.0-35.0) pg MCHC 32.6 (31.0-37.0) g/dL RDW 14.8 (11.5-15.5) % Plt Count 219 (150-450) k/uL Neutrophils % 76 % Lymphocytes % 19 % Monocytes % 4 % Eosinophils % 1 % Basophils % 0 % Neutrophils # 9.4 H (1.3-7.7) k/uL Lymphocytes # 2.3 (1.0-4.8) k/uL Monocytes # 0.4 (0-1.0) k/uL Eosinophils # 0.1 (0-0.7) k/uL Basophils # 0.1 (0-0.2) k/uL Sodium 141 (137-145) mmol/L Potassium 4.0 (3.5-5.1) mmol/L Chloride 108 H (98-107) mmol/L Carbon Dioxide 25 (22-30) mmol/L Anion Gap 8 mmol/L BUN 11 (7-17) mg/dL Creatinine 0.64 (0.52-1.04) mg/dL Est GFR (CKD-EPI)AfAm >90 (>60 ml/min/1.73 sqM) Est GFR (CKD-EPI)NonAf >90 (>60 ml/min/1.73 sqM) Glucose 143 H (74-99) mg/dL Calcium 9.8 (8.4-10.2) mg/dL Total Bilirubin 0.3 (0.2-1.3) mg/dL AST 29 (14-36) U/L ALT 27 (9-52) U/L Alkaline Phosphatase 134 H (38-126) U/L Total Protein 7.9 (6.3-8.2) g/dL Albumin 4.2 (3.5-5.0) g/dL Amylase 100 (30-110) U/L Lipase 124 (23-300) U/L Urine Color Yellow Urine Appearance Clear (Clear) Urine pH 8.0 (5.0-8.0) Ur Specific [place] 1.013 (1.001-1.035) Urine Protein 1+ H (Negative) Urine Glucose (UA) Negative (Negative) Urine Ketones Negative (Negative) Urine Blood Trace H (Negative) Urine Nitrite Negative (Negative) Urine Bilirubin Negative (Negative) Urine Urobilinogen <2.0 (<2.0) mg/dL Ur Leukocyte Esterase Negative (Negative) Urine RBC 2 (0-5) /hpf Urine WBC 1 (0-5) /hpf Urine Bacteria Rare H (None) /hpf Urine Mucus Few H (None) /hpf Disposition <Venkatesh Kyle - Last Filed: 02/21/18 05:26> Is patient prescribed a controlled substance at d/c from ED?: No <Josef Motta - Last Filed: 02/21/18 08:42> Clinical Impression: Dehydration, Gastroenteritis Disposition: HOME SELF-CARE Condition: Good Instructions: Acute Nausea and Vomiting (ED) Referrals: Dequan Allen MD [Primary Care Provider] - 1-2 days
[2018-02-21] MEDS ORDERED: SODIUM CHLORIDE 0.9% 1,000 ML IV ONE (06:01)
[2018-02-21] MEDS ORDERED: HYDROmorphone 1 MG/ML 1 ML SYRINGE IVP STA (06:22)
[2018-02-21 06:32] VITALS: BP 147/82; PULSE 88; RESP 18
--- NOTE | 2018-02-21 07:14 | CT ---
EXAMINATION TYPE: CT abdomen pelvis wo con DATE OF EXAM: 02/21/2018 COMPARISON: None HISTORY: Stomach pains with nausea and vomiting CT DLP: 357.4 mGycm Automated exposure control for dose reduction was used. TECHNIQUE: Helical acquisition of images was performed from the lung bases through the pelvis. FINDINGS: LUNG BASES: No significant abnormality is appreciated. LIVER/GB: Liver has an unremarkable unenhanced morphology. Dependent sludge layers within the gallbla dder PANCREAS: No significant abnormality is seen. SPLEEN: No significant abnormality is seen. ADRENALS: No significant abnormality is seen. KIDNEYS: Punctate 2 mm nonobstructing left midpole renal calculus is seen on coronal image 57. No rig ht-sided nephrolithiasis or bilateral hydronephrosis. FREE AIR: No free air is visualized ADENOPATHY: No greater than 1 cm short axis lymph nodes are appreciated in the abdomen or pelvis giv en the limitation of lack of intravenous contrast URINARY BLADDER: Urinary bladder is decompressed and incompletely evaluated. OSSEOUS STRUCTURES: Osseous structures appear intact. There are nonspecific sclerotic foci that are subcentimeter scattered throughout the pelvis. BOWEL: There is decompression of the entirety of the colon with very mild pericolonic fat stranding appreciated throughout. The appendix is not well visualized given lack of oral contrast. No focal rig ht lower quadrant fat stranding changes are seen at this time. OTHER: Moderate atherosclerosis is noted of the abdominal aorta and its branches. IMPRESSION: 1. FINDINGS MOST COMPATIBLE WITH ACUTE UNCOMPLICATED MILD PANCOLITIS. APPENDIX IS NOT WELL VISUALIZED HOWEVER NO FOCAL RIGHT LOWER QUADRANT FAT STRANDING CHANGES ARE SEEN AT THIS TIME. 2. DEPENDENT BILIARY SLUDGE.
[2018-02-21 08:06] LABS: Appearance,Urine Clear (Clear); Bacteria,Urine Rare /hpf; Bilirubin,Urine Negative (Negative); Blood,Urine Trace (Negative); Color,Urine Yellow; Glucose,Urine (UA) Negative (Negative); Ketones,Urine Negative (Negative); Leukocyte Esterase,Urine Negative (Negative); Mucus,Urine Few /hpf; Nitrite,Urine Negative (Negative); Protein,Urine 1+ (Negative); RBC,Urine 2 /hpf (0-5); Specific Gravity,Urine 1.013 (1.001-1.035); Urobilinogen,Urine <2.0 mg/dL (<2.0); WBC,Urine 1 /hpf (0-5)
== END 2018-02-21 09:09 | disposition home or self-care (01) ==
LOC: EC 04:38
DX: K52.9 Noninfective gastroenteritis and colitis, unspecified (principal); E86.0 Dehydration; K21.9 Gastro-esophageal reflux disease without esophagitis; F41.9 Anxiety disorder, unspecified; F17.200 Nicotine dependence, unspecified, uncomplicated; Z79.899 Other long term (current) drug therapy; Z88.5 Allergy status to narcotic agent; Z91.030 Bee allergy status; Z90.49 Acquired absence of other specified parts of digestive tract; Z53.29 Procedure and treatment not carried out because of patient's decision for other reasons
CPT/HCPCS: 99284; 36415; 80053; 82150; 83690; 85025; 81001; 74176; 96374; 96375; 96361; J2550; J1170

== ENCOUNTER 2018-03-02 16:09 | Emergency (ER) | payer BC, MEDICARE ==
[2018-03-02 17:45] LABS: Basophils # (A) 0.1 k/uL (0-0.2); Basophils % (A) 1 %; Eosinophils # (A) 0.1 k/uL (0-0.7); Eosinophils % (A) 2 %; HCT 37.6 % (34.0-46.0); HGB 12.4 gm/dL (11.4-16.0); Lymphocytes # (A) 2.8 k/uL (1.0-4.8); Lymphocytes % (A) 41 %; MCH 28.4 pg (25.0-35.0); MCHC 32.8 g/dL (31.0-37.0); MCV 86.4 fL (80.0-100.0); Mean Platelet Volume 7.7; Monocytes # (A) 0.2 k/uL (0-1.0); Monocytes % (A) 3 %; Neutrophils # (A) 3.6 k/uL (1.3-7.7); Neutrophils % (A) 52 %; Platelet Count 262 k/uL (150-450); RBC 4.35 m/uL (3.80-5.40); RDW 14.7 % (11.5-15.5); WBC 6.9 k/uL (3.8-10.6)
[2018-03-02 17:53] LABS: Potassium 4.3 mmol/L (3.5-5.1)
[2018-03-02] MEDS ORDERED: HYDROmorphone 1 MG/ML 1 ML SYRINGE IVP STA (17:53)
[2018-03-02] MEDS ORDERED: SODIUM CHLORIDE 0.9% 1,000 ML IV STA (17:53)
[2018-03-02] MEDS ORDERED: PROMETHAZINE INJ 25 MG in SODIUM CHLORIDE 0.9% 50 ML IVPB STA (17:55)
[2018-03-02 17:56] LABS: ALT 30 U/L (9-52); AST 29 U/L (14-36); Albumin 4.2 g/dL (3.5-5.0); Alkaline Phosphatase 127 U/L (38-126); Amylase 92 U/L (30-110); Anion Gap 8 mmol/L; Blood Urea Nitrogen 5 mg/dL (7-17); Calcium 9.8 mg/dL (8.4-10.2); Carbon Dioxide 26 mmol/L (22-30); Chloride 108 mmol/L (98-107); Glucose 98 mg/dL (74-99); Lipase 158 U/L (23-300); Sodium 142 mmol/L (137-145); Total Bilirubin 0.3 mg/dL (0.2-1.3)
--- NOTE | 2018-03-02 18:23 | ED ---
General Adult HPI - General Chief complaint: Nausea/Vomiting/Diarrhea Stated complaint: VOMITING, NAUSEA, PAIN Time Seen by Provider: 03/02/18 17:42 Source: patient, RN notes reviewed Mode of arrival: wheelchair Limitations: no limitations - History of Present Illness Initial comments: patient 52-year-old female significant past medical history for cyclic vomiting syndrome, IBS, presenting to the emergency room today with a chief complaint of increased symptoms over the last 3 days. Patient does admit that she has had pain in the epigastric and lower abdomen. States is consistent with cyclic vomiting and also IBS. She states she's had multiple episodes of nausea vomiting and diarrhea. Denies any signs of blood in the emesis or stool. Patient states all the symptoms are consistent with episodes that she's had in the past. She states she came here to the emergency room because she no she needs IV fluids and she is needs Dilaudid, Phenergan for the symptoms. Patient denies any other complaints. Patient denies any recent fever, chills, shortness of breath, chest pain, back pain, numbness or tingling, dysuria or hematuria, constipation, headaches or visual changes, or any other complaints. - Related Data Home Medications Medication Instructions Recorded Confirmed ALPRAZolam [Xanax] 0.25 mg PO QID 06/30/15 03/02/18 Escitalopram [Lexapro] 20 mg PO DAILY 06/30/15 03/02/18 Pantoprazole [Protonix] 40 mg PO BID 06/30/15 03/02/18 Atorvastatin [Lipitor] 80 mg PO HS 07/16/16 03/02/18 Temazepam [Restoril] 15 mg PO HS PRN 07/16/16 03/02/18 Hyoscyamine Sulfate [Levsin-Sl] 0.125 mg SL BID 01/19/17 03/02/18 Promethazine HCl 25 mg PO Q4H PRN 01/19/17 03/02/18 traMADol HCL [Ultram] 50 mg PO Q4HR PRN 01/19/17 03/02/18 Allergies Allergy/AdvReac Type Severity Reaction Status Date / Time venom-honey bee Allergy Anaphylaxis Verified 03/02/18 17:39 morphine AdvReac Nausea & Verified 03/02/18 17:39 Vomiting Review of Systems ROS Statement: Those systems with pertinent positive or pertinent negative responses have been documented in the HPI. ROS Other: All systems not noted in ROS Statement are negative. Past Medical History Past Medical History: GERD/Reflux Additional Past Medical History / Comment(s): cyclic vomiting syndrome; IBS; Gastroparesis History of Any Multi-Drug Resistant Organisms: None Reported Past Surgical History: Appendectomy, Hysterectomy Past Psychological History: Anxiety Smoking Status: Current every day smoker Past Alcohol Use History: None Reported Past Drug Use History: Marijuana General Exam - General Exam Comments Initial Comments: General: The patient is awake and alert, in no distress, and does not appear acutely ill. Eye: There is normal conjunctiva bilaterally. No signs of icterus. Ears, nose, mouth and throat: There are moist mucous membranes and no oral lesions. Neck: The neck is supple, there is no tenderness or JVD. Cardiovascular: There is a regular rate and rhythm. No murmur, rub or gallop is appreciated. Respiratory: Lungs are clear to auscultation, respirations are non-labored, breath sounds are equal. No wheezes, stridor, rales, or rhonchi. Gastrointestinal: abdomen soft on palpation. She does have tenderness epigastric. No rebound, guarding or CVA tenderness. Musculoskeletal: Normal ROM, no tenderness. Neurological: A&O x 3. CN II-XII intact, There are no obvious motor or sensory deficits. Coordination appears grossly intact. Speech is normal. Skin: Skin is warm and dry and no rashes or lesions are noted. Psychiatric: Cooperative, appropriate mood & affect, normal judgment. Limitations: no limitations Course Vital Signs 03/02/18 03/02/18 16:45 19:00 Temperature 97.9 F Pulse Rate 103 H 82 Respiratory 20 18 Rate Blood Pressure 135/83 120/68 O2 Sat by Pulse 98 99 Oximetry Medical Decision Making - Medical Decision Making patient reexamined at this time shows no signs of distress. Patient's labs been reviewed. Patient does admit to a history of cyclic vomiting IBS. States his symptoms are consistent. Patient labs are unremarkable. Vital stable. Patient feeling better. Will be discharged home to follow-up with her family doctor and specialist. Patient does have nausea medicine at home to use. Patient advised return for any other concerns. - Lab Data Result diagrams: 03/02/18 17:32 03/02/18 17:32 Lab Results 03/02/18 03/02/18 03/02/18 Range/Units 17:32 17:32 Unknown WBC 6.9 (3.8-10.6) k/uL RBC 4.35 (3.80-5.40) m/uL Hgb 12.4 (11.4-16.0) gm/dL Hct 37.6 (34.0-46.0) % MCV 86.4 (80.0-100.0) fL MCH 28.4 (25.0-35.0) pg MCHC 32.8 (31.0-37.0) g/dL RDW 14.7 (11.5-15.5) % Plt Count 262 (150-450) k/uL Neutrophils % 52 % Lymphocytes % 41 % Monocytes % 3 % Eosinophils % 2 % Basophils % 1 % Neutrophils # 3.6 (1.3-7.7) k/uL Lymphocytes # 2.8 (1.0-4.8) k/uL Monocytes # 0.2 (0-1.0) k/uL Eosinophils # 0.1 (0-0.7) k/uL Basophils # 0.1 (0-0.2) k/uL Sodium 142 (137-145) mmol/L Potassium 4.3 (3.5-5.1) mmol/L Chloride 108 H (98-107) mmol/L Carbon Dioxide 26 (22-30) mmol/L Anion Gap 8 mmol/L BUN 5 L (7-17) mg/dL Creatinine 0.55 (0.52-1.04) mg/dL Est GFR (CKD-EPI)AfAm >90 (>60 ml/min/1.73 sqM) Est GFR (CKD-EPI)NonAf >90 (>60 ml/min/1.73 sqM) Glucose 98 (74-99) mg/dL Calcium 9.8 (8.4-10.2) mg/dL Total Bilirubin 0.3 (0.2-1.3) mg/dL AST 29 (14-36) U/L ALT 30 (9-52) U/L Alkaline Phosphatase 127 H (38-126) U/L Total Protein 8.0 (6.3-8.2) g/dL Albumin 4.2 (3.5-5.0) g/dL Amylase 92 (30-110) U/L Lipase 158 (23-300) U/L Urine Color Yellow Urine Appearance Clear (Clear) Urine pH 6.5 (5.0-8.0) Ur Specific [place] 1.004 (1.001-1.035) Urine Protein Negative (Negative) Urine Glucose (UA) Negative (Negative) Urine Ketones Negative (Negative) Urine Blood Trace H (Negative) Urine Nitrite Negative (Negative) Urine Bilirubin Negative (Negative) Urine Urobilinogen <2.0 (<2.0) mg/dL Ur Leukocyte Esterase Negative (Negative) Urine RBC 1 (0-5) /hpf Urine WBC 1 (0-5) /hpf Urine Mucus Rare H (None) /hpf Disposition Clinical Impression: Nausea & vomiting Disposition: HOME SELF-CARE Condition: Good Instructions: Acute Nausea and Vomiting (ED) Additional Instructions: Please use medication as discussed. Please follow-up with family doctor in the next 2 days of symptoms have not improved. Please return to emergency room if the symptoms increase or worsen or for any other concerns. Is patient prescribed a controlled substance at d/c from ED?: No Referrals: Dequan Allen MD [Primary Care Provider] - 1-2 days Time of Disposition: 19:26
[2018-03-02 19:02] VITALS: RESP 18
[2018-03-02] MEDS ORDERED: LORazepam 2 MG/ML INJ IV STA (19:20)
[2018-03-02] MEDS ORDERED: SODIUM CHLORIDE 0.9% 500 ML 500 ML IV STA (19:20)
[2018-03-02] MEDS ORDERED: KETOROLAC 30 MG/ML 1 ML VIAL IVP STA (19:20)
[2018-03-02] MEDS ORDERED: FAMOTIDINE 20 MG/2 ML VIAL IV STA (19:20)
[2018-03-02 19:25] LABS: Appearance,Urine Clear (Clear); Bilirubin,Urine Negative (Negative); Blood,Urine Trace (Negative); Color,Urine Yellow; Glucose,Urine (UA) Negative (Negative); Ketones,Urine Negative (Negative); Leukocyte Esterase,Urine Negative (Negative); Mucus,Urine Rare /hpf; Nitrite,Urine Negative (Negative); PH, Urine 6.5 (5.0-8.0); Protein,Urine Negative (Negative); RBC,Urine 1 /hpf (0-5); Specific Gravity,Urine 1.004 (1.001-1.035); Urobilinogen,Urine <2.0 mg/dL (<2.0); WBC,Urine 1 /hpf (0-5)
[2018-03-02 20:46] VITALS: BP 122/69; PULSE 70; TEMP 98.4
== END 2018-03-02 20:46 | disposition home or self-care (01) ==
LOC: EC 16:09
DX: R11.2 Nausea with vomiting, unspecified (principal); R10.13 Epigastric pain; R10.30 Lower abdominal pain, unspecified; R19.7 Diarrhea, unspecified; K21.9 Gastro-esophageal reflux disease without esophagitis; F41.9 Anxiety disorder, unspecified; F17.200 Nicotine dependence, unspecified, uncomplicated; Z79.899 Other long term (current) drug therapy; Z88.5 Allergy status to narcotic agent; Z91.030 Bee allergy status
CPT/HCPCS: 36415; 80053; 82150; 83690; 85025; 81001; 99284; 96374; 96375 ×4; 96361 ×2; J2060; J2550; J1885; J1170

== ENCOUNTER 2018-05-07 21:59 | Emergency (ER) | payer BC, MEDICARE ==
[2018-05-07] MEDS ORDERED: PROMETHAZINE 25 MG TAB PO STA (22:20)
[2018-05-07] MEDS ORDERED: SODIUM CHLORIDE 0.9% 1,000 ML IV STA (22:20)
[2018-05-07] MEDS ORDERED: HYDROmorphone 0.5 MG/0.5 ML SYRINGE IVP STA (22:20)
[2018-05-07] MEDS ORDERED: PROMETHAZINE INJ 12.5 MG in SODIUM CHLORIDE 0.9% 50 ML IVPB STA (22:22)
[2018-05-07 22:57] LABS: Basophils # (A) 0.1 k/uL (0-0.2); Basophils % (A) 1 %; Eosinophils # (A) 0.1 k/uL (0-0.7); Eosinophils % (A) 1 %; HCT 36.1 % (34.0-46.0); HGB 11.7 gm/dL (11.4-16.0); Lymphocytes # (A) 1.8 k/uL (1.0-4.8); Lymphocytes % (A) 20 %; MCH 28.2 pg (25.0-35.0); MCHC 32.5 g/dL (31.0-37.0); Monocytes # (A) 0.3 k/uL (0-1.0); Monocytes % (A) 4 %; Neutrophils # (A) 6.7 k/uL (1.3-7.7); Neutrophils % (A) 74 %; Platelet Count 224 k/uL (150-450); RBC 4.15 m/uL (3.80-5.40); RDW 14.6 % (11.5-15.5)
[2018-05-07 23:05] LABS: ALT 35 U/L (9-52); AST 26 U/L (14-36); Albumin 4.2 g/dL (3.5-5.0); Alkaline Phosphatase 135 U/L (38-126); Amylase 126 U/L (30-110); Anion Gap 7 mmol/L; Blood Urea Nitrogen 8 mg/dL (7-17); Calcium 9.8 mg/dL (8.4-10.2); Carbon Dioxide 25 mmol/L (22-30); Chloride 109 mmol/L (98-107); Glucose 113 mg/dL (74-99); Lipase 133 U/L (23-300); Potassium 4.2 mmol/L (3.5-5.1); Sodium 141 mmol/L (137-145); Total Bilirubin 0.4 mg/dL (0.2-1.3); Total Protein 7.7 g/dL (6.3-8.2)
--- NOTE | 2018-05-07 23:11 | XR ---
EXAM: XR Abdomen, 1 View CLINICAL HISTORY: ITS.REASON XR Reason: abdominal pain TECHNIQUE: Frontal supine view of the abdomen/pelvis. COMPARISON: No relevant prior studies available. FINDINGS: Gastrointestinal tract: Unremarkable. No dilation. Bones/joints: Unremarkable. IMPRESSION: Normal abdominal x-ray.
--- NOTE | 2018-05-07 23:19 | ED ---
General Adult HPI - General Chief complaint: Nausea/Vomiting/Diarrhea Stated complaint: IBS Episode Time Seen by Provider: 05/07/18 22:09 Source: patient, RN notes reviewed, old records reviewed Mode of arrival: wheelchair Limitations: no limitations - History of Present Illness Initial comments: 52-year-old female patient past medical history of cyclic vomiting syndrome, status post hysterectomy and appendectomy presents to ED with exacerbation of cyclic vomiting syndrome, abdominal pain. Patient states that this is ongoing for approximately 5 hours. Patient states this feels identical to her cyclic vomiting syndrome abdominal pain she describes the past. Patient denies any personal new or concerning symptoms. Patient denies any chest pain shortness of breath. Patient states that the abdominal pain she is experiencing as epigastric and consistent with the abdominal pain she has had in the past. Pt has not taken anything for this problem. Patient denies other complaints. Systemic: Pt denies fatigue, myalgia, fever/chills, rash. Pt denies weakness, night sweats, weight loss. Neuro: Pt denies headache, visual disturbances, syncope or pre-syncope. HEENT: Pt denies ocular discharge or irritation, otalgia, rhinorrhea, pharyngitis or notable lymphadenopathy. Cardiopulmonary: Pt denies chest pain, SOB, heart palpitations, dyspnea on exertion. Abdominal/GI: Pt denies abdominal pain, n/v/d. : Pt denies dysuria, burning w/ urination, frequency/urgency. Denies new onset urinary or bowel incontinence. MSK: Pt denies myalgia, loss of strength or function in extremities. Neuro: Pt denies new onset weakness, paresthesias. - Related Data Home Medications Medication Instructions Recorded Confirmed ALPRAZolam [Xanax] 0.25 mg PO QID 06/30/15 03/02/18 Escitalopram [Lexapro] 20 mg PO DAILY 06/30/15 03/02/18 Pantoprazole [Protonix] 40 mg PO BID 06/30/15 03/02/18 Atorvastatin [Lipitor] 80 mg PO HS 07/16/16 03/02/18 Temazepam [Restoril] 15 mg PO HS PRN 07/16/16 03/02/18 Hyoscyamine Sulfate [Levsin-Sl] 0.125 mg SL BID 01/19/17 03/02/18 Promethazine HCl 25 mg PO Q4H PRN 01/19/17 03/02/18 traMADol HCL [Ultram] 50 mg PO Q4HR PRN 01/19/17 03/02/18 Allergies Allergy/AdvReac Type Severity Reaction Status Date / Time venom-honey bee Allergy Anaphylaxis Verified 05/07/18 22:03 morphine AdvReac Nausea & Verified 05/07/18 22:03 Vomiting Review of Systems ROS Statement: Those systems with pertinent positive or pertinent negative responses have been documented in the HPI. ROS Other: All systems not noted in ROS Statement are negative. Past Medical History Past Medical History: GERD/Reflux Additional Past Medical History / Comment(s): cyclic vomiting syndrome; IBS; Gastroparesis History of Any Multi-Drug Resistant Organisms: None Reported Past Surgical History: Appendectomy, Hysterectomy Past Psychological History: Anxiety Smoking Status: Current every day smoker Past Alcohol Use History: None Reported Past Drug Use History: Marijuana General Exam - General Exam Comments Initial Comments: Constitutional: NAD, AOX3, Pt has pleasant affect. HEENT: NC/AT, trachea midline, neck supple, no lymphadenopathy. Posterior pharynx non erythematous, without exudates. External ears appear normal, without discharge. Mucous membranes moist. Eyes PERRLA, EOM intact. There is no scleral icterus. No pallor noted. Cardiopulmonary: RRR, no murmurs, rubs or gallops, no JVD noted. Lungs CTAB in anterior and posterior [place]. No peripheral edema. Abdominal exam: Abdomen soft and non-distended. Abdomen mildly tender to palpation in epigastric region. Repeat abdominal . Bowel sounds active in LLQ. No hepatosplenomegaly. No ecchymosis Neuro: CN II-XII grossly intact. No nuchal rigidity. MSK: No posterior calf tenderness bilaterally, homans sign negative bilaterally. Posterior tibialis and radial pulse +2 bilaterally. Sensation intact in upper and lower extremities. Full active ROM in upper and lower extremities, 5/5 stregnth. Limitations: no limitations Course Vital Signs 05/07/18 05/07/18 21:59 23:33 Temperature 97.8 F 97.2 F L Pulse Rate 80 75 Respiratory 16 18 Rate Blood Pressure 124/82 106/93 O2 Sat by Pulse 97 97 Oximetry Medical Decision Making - Medical Decision Making 52-year-old female patient past medical history of cyclic vomiting syndrome, status post hysterectomy and appendectomy presents to ED with exacerbation of cyclic vomiting syndrome, abdominal pain. Patient states that this is ongoing for approximately 5 hours. Patient states this feels identical to her cyclic vomiting syndrome abdominal pain she describes the past. Patient denies any personal new or concerning symptoms. Patient denies any chest pain shortness of breath. Patient states that the abdominal pain she is experiencing as epigastric and consistent with the abdominal pain she has had in the past. Pt has not taken anything for this problem. Patient denies other complaints. Patient will signs stable, afebrile. Physical exam displayed mild epigastric pain, repeat exam displayed nontender abdomen. Laboratory investigations are non-impressive CBC, CMP. Amylase very mildly elevated. Lipase within normal limits. KUB did not display acute pathology. Patient improved with administration of analgesic, antiemetic. Patient asymptomatic. Patient states that she wants to be discharged. Patient not driving home. Pt to f/u with PCP in 1-2 days. Case discussed with Dr. Zhao. - Lab Data Result diagrams: 05/07/18 22:37 05/07/18 22:37 Lab Results 05/07/18 05/07/18 Range/Units 22:37 22:37 WBC 9.0 (3.8-10.6) k/uL RBC 4.15 (3.80-5.40) m/uL Hgb 11.7 (11.4-16.0) gm/dL Hct 36.1 (34.0-46.0) % MCV 87.0 (80.0-100.0) fL MCH 28.2 (25.0-35.0) pg MCHC 32.5 (31.0-37.0) g/dL RDW 14.6 (11.5-15.5) % Plt Count 224 (150-450) k/uL Neutrophils % 74 % Lymphocytes % 20 % Monocytes % 4 % Eosinophils % 1 % Basophils % 1 % Neutrophils # 6.7 (1.3-7.7) k/uL Lymphocytes # 1.8 (1.0-4.8) k/uL Monocytes # 0.3 (0-1.0) k/uL Eosinophils # 0.1 (0-0.7) k/uL Basophils # 0.1 (0-0.2) k/uL Sodium 141 (137-145) mmol/L Potassium 4.2 (3.5-5.1) mmol/L Chloride 109 H (98-107) mmol/L Carbon Dioxide 25 (22-30) mmol/L Anion Gap 7 mmol/L BUN 8 (7-17) mg/dL Creatinine 0.57 (0.52-1.04) mg/dL Est GFR (CKD-EPI)AfAm >90 (>60 ml/min/1.73 sqM) Est GFR (CKD-EPI)NonAf >90 (>60 ml/min/1.73 sqM) Glucose 113 H (74-99) mg/dL Calcium 9.8 (8.4-10.2) mg/dL Total Bilirubin 0.4 (0.2-1.3) mg/dL AST 26 (14-36) U/L ALT 35 (9-52) U/L Alkaline Phosphatase 135 H (38-126) U/L Total Protein 7.7 (6.3-8.2) g/dL Albumin 4.2 (3.5-5.0) g/dL Amylase 126 H (30-110) U/L Lipase 133 (23-300) U/L Disposition Clinical Impression: Nausea & vomiting Disposition: HOME SELF-CARE Condition: Serious Instructions (If sedation given, give patient instructions): Acute Nausea and Vomiting (ED) Additional Instructions: Patient to adhere to previously discussed treatment plan and will take medication(s) as directed. Patient to follow up with PCP in 1-2 days. Patient to return to ED if symptoms do not improve. Is patient prescribed a controlled substance at d/c from ED?: No Referrals: Bandar Allen MD [Primary Care Provider] - 1-2 days
[2018-05-07 23:35] VITALS: BP 106/93; PULSE 75; RESP 18; TEMP 97.2
== END 2018-05-07 23:33 | disposition home or self-care (01) ==
LOC: EC 21:59
DX: G43.A0 Cyclical vomiting, in migraine, not intractable (principal); R19.7 Diarrhea, unspecified; R10.13 Epigastric pain; K21.9 Gastro-esophageal reflux disease without esophagitis; F41.9 Anxiety disorder, unspecified; F17.200 Nicotine dependence, unspecified, uncomplicated; Z79.899 Other long term (current) drug therapy; Z88.5 Allergy status to narcotic agent; Z91.030 Bee allergy status; Z90.49 Acquired absence of other specified parts of digestive tract; Z90.710 Acquired absence of both cervix and uterus
CPT/HCPCS: 36415; 80053; 82150; 83690; 85025; 74018; 99284; 96374; 96375; 96361; J2550; J1170

== ENCOUNTER 2018-05-27 10:19 | Emergency (ER) | payer BC, MEDICARE ==
[2018-05-27] MEDS ORDERED: HYDROmorphone 0.5 MG/0.5 ML SYRINGE IVP STA (10:43)
[2018-05-27] MEDS ORDERED: SODIUM CHLORIDE 0.9% 1,000 ML IV STA (10:44)
[2018-05-27] MEDS ORDERED: PROMETHAZINE INJ 25 MG in SODIUM CHLORIDE 0.9% 50 ML IVPB STA (10:47)
[2018-05-27 11:05] LABS: Basophils # (A) 0.1 k/uL (0-0.2); Basophils % (A) 1 %; Eosinophils # (A) 0.2 k/uL (0-0.7); Eosinophils % (A) 1 %; HCT 45.1 % (34.0-46.0); HGB 14.1 gm/dL (11.4-16.0); Lymphocytes # (A) 2.9 k/uL (1.0-4.8); Lymphocytes % (A) 17 %; MCH 27.4 pg (25.0-35.0); MCHC 31.3 g/dL (31.0-37.0); MCV 87.4 fL (80.0-100.0); Mean Platelet Volume 7.9; Monocytes # (A) 0.6 k/uL (0-1.0); Monocytes % (A) 4 %; Neutrophils # (A) 13.1 k/uL (1.3-7.7); Neutrophils % (A) 77 %; Platelet Count 311 k/uL (150-450); RBC 5.16 m/uL (3.80-5.40); RDW 14.6 % (11.5-15.5)
[2018-05-27 11:15] LABS: ALT 24 U/L (9-52); AST 28 U/L (14-36); Alkaline Phosphatase 179 U/L (38-126); Amylase 143 U/L (30-110); Anion Gap 13 mmol/L; Blood Urea Nitrogen 12 mg/dL (7-17); Calcium 10.7 mg/dL (8.4-10.2); Carbon Dioxide 19 mmol/L (22-30); Chloride 110 mmol/L (98-107); Glucose 159 mg/dL (74-99); Lipase 307 U/L (23-300); Potassium 4.5 mmol/L (3.5-5.1); Sodium 142 mmol/L (137-145); Total Bilirubin 0.5 mg/dL (0.2-1.3); Total Protein 9.2 g/dL (6.3-8.2)
--- NOTE | 2018-05-27 13:09 | ED ---
General Adult HPI - General Chief complaint: Nausea/Vomiting/Diarrhea Stated complaint: vomiting Time Seen by Provider: 05/27/18 10:39 Source: patient, RN notes reviewed Mode of arrival: wheelchair Limitations: no limitations - History of Present Illness Initial comments: Patient has a history of cyclic vomiting syndrome, IBS, GERD, gastroparesis. Patient states the symptoms are completely consistent with her cyclic vomiting syndrome. States pain is the same. States vomiting is the same. She states this all started a few hours prior to arrival. Patient requesting Dilaudid and Phenergan. Patient denies any urinary symptoms. Denies any new symptoms or more severe abdominal pain than she normally experiences with cyclic vomiting syndrome. Patient has no other complaints at this time including shortness of breath, chest pain, headache, or visual changes. - Related Data Home Medications Medication Instructions Recorded Confirmed ALPRAZolam [Xanax] 0.25 mg PO QID 06/30/15 03/02/18 Escitalopram [Lexapro] 20 mg PO DAILY 06/30/15 03/02/18 Pantoprazole [Protonix] 40 mg PO BID 06/30/15 03/02/18 Atorvastatin [Lipitor] 80 mg PO HS 07/16/16 03/02/18 Temazepam [Restoril] 15 mg PO HS PRN 07/16/16 03/02/18 Hyoscyamine Sulfate [Levsin-Sl] 0.125 mg SL BID 01/19/17 03/02/18 Promethazine HCl 25 mg PO Q4H PRN 01/19/17 03/02/18 traMADol HCL [Ultram] 50 mg PO Q4HR PRN 01/19/17 03/02/18 Allergies Allergy/AdvReac Type Severity Reaction Status Date / Time venom-honey bee Allergy Anaphylaxis Verified 05/27/18 10:37 morphine AdvReac Nausea & Verified 05/27/18 10:37 Vomiting Review of Systems ROS Statement: Those systems with pertinent positive or pertinent negative responses have been documented in the HPI. ROS Other: All systems not noted in ROS Statement are negative. Past Medical History Past Medical History: GERD/Reflux Additional Past Medical History / Comment(s): cyclic vomiting syndrome; IBS; Gastroparesis History of Any Multi-Drug Resistant Organisms: None Reported Past Surgical History: Appendectomy, Hysterectomy Past Psychological History: Anxiety Smoking Status: Current every day smoker Past Alcohol Use History: None Reported Past Drug Use History: Marijuana General Exam Limitations: no limitations General appearance: anxious (Patient vomiting, hyperventilating, complaining of pain and moaning) Head exam: Present: atraumatic, normocephalic, normal inspection Eye exam: Present: normal appearance, PERRL, EOMI. Absent: scleral icterus, conjunctival injection, periorbital swelling ENT exam: Present: normal exam, mucous membranes moist Neck exam: Present: normal inspection, full ROM. Absent: tenderness, meningismus, lymphadenopathy Respiratory exam: Present: normal lung sounds bilaterally. Absent: respiratory distress, wheezes, rales, rhonchi, stridor Cardiovascular Exam: Present: regular rate, normal rhythm, normal heart sounds. Absent: systolic murmur, diastolic murmur, rubs, gallop, clicks GI/Abdominal exam: Present: soft, tenderness (Mild tenderness throughout the abdomen without guarding), normal bowel sounds. Absent: distended, guarding, rebound, rigid Neurological exam: Present: alert, oriented X3, CN II-XII intact Psychiatric exam: Present: normal affect, normal mood Course Vital Signs 05/27/18 10:34 Temperature 97.5 F L Pulse Rate 65 Respiratory 18 Rate Blood Pressure 145/86 O2 Sat by Pulse 100 Oximetry Medical Decision Making - Medical Decision Making 53-year-old female presents to the emergency department for a chief complaint of nausea and vomiting. Patient admits to abdominal pain as well. Patient states his symptoms are completely consistent with cyclic vomiting syndrome. Patien t's initially lying on her side hyperventilating and vomiting. Patient states she needs Dilaudid and Phenergan which was given to her. CBC does show a white count of 17 which is likely related to vomiting. CMP shows a cardiac 17, likely from her hyperventilating. Patient does have mildly elevated lipase and lipase as well as ALP. After patient was given medication she states her symptoms have completely resolved. She states she is feeling 100% normal and Dr. her normal self. I did a stress concern for gallbladder as patient does have elevated amylase and lipase however patient just had an outpatient ultrasound and would rather follow up for these results as she is having absolutely no pain at this time. Unable to obtain urine however patient denies any urinary symptoms. Patient will be discharged home and will follow-up for appointment with primary care as well as for ultrasound results. She will return here if she has any worsening symptoms. - Lab Data Result diagrams: 05/27/18 10:53 05/27/18 10:53 Lab Results 05/27/18 05/27/18 Range/Units 10:53 10:53 WBC 17.0 H (3.8-10.6) k/uL RBC 5.16 (3.80-5.40) m/uL Hgb 14.1 (11.4-16.0) gm/dL Hct 45.1 (34.0-46.0) % MCV 87.4 (80.0-100.0) fL MCH 27.4 (25.0-35.0) pg MCHC 31.3 (31.0-37.0) g/dL RDW 14.6 (11.5-15.5) % Plt Count 311 (150-450) k/uL Neutrophils % 77 % Lymphocytes % 17 % Monocytes % 4 % Eosinophils % 1 % Basophils % 1 % Neutrophils # 13.1 H (1.3-7.7) k/uL Lymphocytes # 2.9 (1.0-4.8) k/uL Monocytes # 0.6 (0-1.0) k/uL Eosinophils # 0.2 (0-0.7) k/uL Basophils # 0.1 (0-0.2) k/uL Sodium 142 (137-145) mmol/L Potassium 4.5 (3.5-5.1) mmol/L Chloride 110 H (98-107) mmol/L Carbon Dioxide 19 L (22-30) mmol/L Anion Gap 13 mmol/L BUN 12 (7-17) mg/dL Creatinine 0.65 (0.52-1.04) mg/dL Est GFR (CKD-EPI)AfAm >90 (>60 ml/min/1.73 sqM) Est GFR (CKD-EPI)NonAf >90 (>60 ml/min/1.73 sqM) Glucose 159 H (74-99) mg/dL Calcium 10.7 H (8.4-10.2) mg/dL Total Bilirubin 0.5 (0.2-1.3) mg/dL AST 28 (14-36) U/L ALT 24 (9-52) U/L Alkaline Phosphatase 179 H (38-126) U/L Total Protein 9.2 H (6.3-8.2) g/dL Albumin 5.0 (3.5-5.0) g/dL Amylase 143 H (30-110) U/L Lipase 307 H (23-300) U/L Disposition Clinical Impression: Nausea & vomiting Disposition: HOME SELF-CARE Condition: Good Instructions (If sedation given, give patient instructions): Acute Nausea and Vomiting (ED) Additional Instructions: Please follow up with primary care in 1-2 days. Please return here if you have any worsening symptoms. Is patient prescribed a controlled substance at d/c from ED?: No Referrals: Dequan Allen MD [Primary Care Provider] - 1-2 days Time of Disposition: 13:08
[2018-05-27 13:23] VITALS: BP 130/78; PULSE 61; RESP 16; TEMP 98
== END 2018-05-27 13:18 | disposition home or self-care (01) ==
LOC: EC 10:19
DX: R11.2 Nausea with vomiting, unspecified (principal); R19.7 Diarrhea, unspecified; R74.8 Abnormal levels of other serum enzymes; R10.9 Unspecified abdominal pain; K21.9 Gastro-esophageal reflux disease without esophagitis; F41.9 Anxiety disorder, unspecified; F17.200 Nicotine dependence, unspecified, uncomplicated; Z87.19 Personal history of other diseases of the digestive system; Z90.49 Acquired absence of other specified parts of digestive tract; Z90.710 Acquired absence of both cervix and uterus; Z79.899 Other long term (current) drug therapy; Z91.030 Bee allergy status; Z88.5 Allergy status to narcotic agent
CPT/HCPCS: 36415; 80053; 82150; 83690; 85025; 99284; 96365; 96375; 96361; J2550; J1170

== ENCOUNTER 2018-10-08 22:07 | Emergency (ER) | payer BC, MEDICARE ==
[2018-10-08 22:22] VITALS: TEMP 97.8
[2018-10-08] MEDS ORDERED: ONDANSETRON 4 MG/2 ML VIAL IVP STA (22:27)
[2018-10-08] MEDS ORDERED: SODIUM CHLORIDE 0.9% 500 ML 500 ML IV STA (22:27)
[2018-10-08] MEDS ORDERED: KETOROLAC 30 MG/ML 1 ML VIAL IVP STA (22:27)
[2018-10-08] MEDS ORDERED: METOCLOPRAMIDE 5 MG/ML 2 ML VIAL IVP STA (22:27)
[2018-10-08] MEDS ORDERED: diphenhydrAMINE 50 MG/ML 1 ML VIAL IVP STA (22:27)
[2018-10-08] MEDS ORDERED: SODIUM CHLORIDE 0.9% 1,000 ML IV STA ×3 (22:27→23:29)
[2018-10-08] MEDS ORDERED: PANTOPRAZOLE 40 MG/10 ML VIAL IVP STA (22:27)
--- NOTE | 2018-10-08 22:28 | ED ---
Abdominal Pain HPI - General Chief Complaint: Abdominal Pain Stated Complaint: Vomiting Time Seen by Provider: 10/08/18 22:24 Source: patient Mode of arrival: ambulatory Limitations: no limitations - History of Present Illness Initial Comments: This is a 53-year-old female the ER for evaluation. Patient presents with persistent nausea vomiting abdominal pain. Headache from vomiting so much. No fevers. History of irritable bowel, symptoms of been going on for a few hours unable to control symptoms at home. Patient states she occasionally does have become the ER for similar complaint. MD Complaint: abdominal pain -: hour(s), days(s) Location: diffuse Radiation: epigastric Migration to: no migration Severity: moderate Severity scale (1-10): 5 Quality: cramping, aching Consistency: constant Improves With: nothing Worsens With: nothing Context: recent surgery/procedure Associated Symptoms: nausea, vomiting - Related Data Home Medications Medication Instructions Recorded Confirmed ALPRAZolam [Xanax] 0.25 mg PO QID PRN 06/30/15 10/08/18 Escitalopram [Lexapro] 30 mg PO DAILY 06/30/15 10/08/18 Pantoprazole [Protonix] 40 mg PO BID 06/30/15 10/08/18 Atorvastatin [Lipitor] 80 mg PO HS 07/16/16 10/08/18 Temazepam [Restoril] 15 mg PO HS PRN 07/16/16 10/08/18 Hyoscyamine Sulfate [Levsin-Sl] 0.125 mg SL BID 01/19/17 10/08/18 Promethazine HCl 25 mg PO Q4H PRN 01/19/17 10/08/18 Lactulose 10 gm PO DAILY 10/08/18 10/08/18 Allergies Allergy/AdvReac Type Severity Reaction Status Date / Time venom-honey bee Allergy Anaphylaxis Verified 10/08/18 23:38 morphine AdvReac Nausea & Verified 10/08/18 23:38 Vomiting Review of Systems ROS Statement: Those systems with pertinent positive or pertinent negative responses have been documented in the HPI. ROS Other: All systems not noted in ROS Statement are negative. Past Medical History Past Medical History: GERD/Reflux Additional Past Medical History / Comment(s): cyclic vomiting syndrome; IBS; Gastroparesis History of Any Multi-Drug Resistant Organisms: None Reported Past Surgical History: Appendectomy, Hysterectomy Past Psychological History: Anxiety Smoking Status: Current every day smoker Past Alcohol Use History: None Reported Past Drug Use History: Marijuana General Exam Limitations: no limitations General appearance: alert, in no apparent distress, anxious, in distress Head exam: Present: atraumatic, normocephalic, normal inspection Eye exam: Present: normal appearance, PERRL, EOMI. Absent: scleral icterus, conjunctival injection, periorbital swelling ENT exam: Present: normal exam, mucous membranes dry Neck exam: Present: normal inspection. Absent: tenderness, meningismus, lymphadenopathy Respiratory exam: Present: normal lung sounds bilaterally. Absent: respiratory distress, wheezes, rales, rhonchi, stridor Cardiovascular Exam: Present: normal rhythm, tachycardia, normal heart sounds. Absent: systolic murmur, diastolic murmur, rubs, gallop, clicks GI/Abdominal exam: Present: soft, normal bowel sounds. Absent: distended, t enderness, guarding, rebound, rigid Extremities exam: Present: normal inspection, full ROM, normal capillary refill. Absent: tenderness, pedal edema, joint swelling, calf tenderness Back exam: Present: normal inspection Neurological exam: Present: alert, oriented X3, CN II-XII intact Psychiatric exam: Present: normal affect, normal mood Skin exam: Present: warm, dry, intact, normal color. Absent: rash Course Vital Signs 10/08/18 22:19 Temperature 97.8 F Pulse Rate 121 H Respiratory 116 H Rate Blood Pressure 119/80 O2 Sat by Pulse 100 Oximetry - Reevaluation(s) Reevaluation #1: 10/09/18 00:39 Medical records reviewed Reevaluation #2: 10/09/18 00:40 Symptoms resolved Medical Decision Making - Medical Decision Making 53 female the ER with history of wtgqhexhnddz-[id number]-daj bowel syndrome. Patient symptoms are now improved. Patient can be discharged home - Lab Data Result diagrams: 10/08/18 22:50 10/08/18 22:50 Lab Results 10/08/18 10/08/18 Range/Units 22:50 22:50 WBC 14.8 H (3.8-10.6) k/uL RBC 4.14 (3.80-5.40) m/uL Hgb 11.6 (11.4-16.0) gm/dL Hct 35.2 (34.0-46.0) % MCV 84.9 (80.0-100.0) fL MCH 28.0 (25.0-35.0) pg MCHC 32.9 (31.0-37.0) g/dL RDW 15.5 (11.5-15.5) % Plt Count 305 (150-450) k/uL Neutrophils % 80 % Lymphocytes % 14 % Monocytes % 3 % Eosinophils % 1 % Basophils % 0 % Neutrophils # 11.9 H (1.3-7.7) k/uL Lymphocytes # 2.1 (1.0-4.8) k/uL Monocytes # 0.5 (0-1.0) k/uL Eosinophils # 0.2 (0-0.7) k/uL Basophils # 0.1 (0-0.2) k/uL Sodium 139 (137-145) mmol/L Potassium 3.5 (3.5-5.1) mmol/L Chloride 105 (98-107) mmol/L Carbon Dioxide 22 (22-30) mmol/L Anion Gap 12 mmol/L BUN 11 (7-17) mg/dL Creatinine 0.57 (0.52-1.04) mg/dL Est GFR (CKD-EPI)AfAm >90 (>60 ml/min/1.73 sqM) Est GFR (CKD-EPI)NonAf >90 (>60 ml/min/1.73 sqM) Glucose 108 H (74-99) mg/dL Calcium 9.5 (8.4-10.2) mg/dL Total Bilirubin 0.4 (0.2-1.3) mg/dL AST 33 (14-36) U/L ALT 16 (9-52) U/L Alkaline Phosphatase 130 H (38-126) U/L Total Protein 7.7 (6.3-8.2) g/dL Albumin 4.1 (3.5-5.0) g/dL Amylase 60 (30-110) U/L Lipase 41 (23-300) U/L Disposition Clinical Impression: Abdominal pain, Nausea & vomiting, Inflammatory bowel disease Disposition: ADMITTED IP TO THIS [facility] Instructions (If sedation given, give patient instructions): Abdominal Pain (ED) Is patient prescribed a controlled substance at d/c from ED?: No Referrals: Dequan Allen MD [Primary Care Provider] - 1-2 days
[2018-10-08 23:08] LABS: Basophils # (A) 0.1 k/uL (0-0.2); Basophils % (A) 0 %; Eosinophils # (A) 0.2 k/uL (0-0.7); Eosinophils % (A) 1 %; HCT 35.2 % (34.0-46.0); HGB 11.6 gm/dL (11.4-16.0); Lymphocytes # (A) 2.1 k/uL (1.0-4.8); Lymphocytes % (A) 14 %; MCHC 32.9 g/dL (31.0-37.0); MCV 84.9 fL (80.0-100.0); Mean Platelet Volume 7.7; Monocytes # (A) 0.5 k/uL (0-1.0); Monocytes % (A) 3 %; Neutrophils # (A) 11.9 k/uL (1.3-7.7); Neutrophils % (A) 80 %; Platelet Count 305 k/uL (150-450); RBC 4.14 m/uL (3.80-5.40); RDW 15.5 % (11.5-15.5); WBC 14.8 k/uL (3.8-10.6)
[2018-10-08 23:13] LABS: ALT 16 U/L (9-52); AST 33 U/L (14-36); African American GFR (CKD) >90 (>60 ml/min/1.73 sqM); Albumin 4.1 g/dL (3.5-5.0); Alkaline Phosphatase 130 U/L (38-126); Amylase 60 U/L (30-110); Anion Gap 12 mmol/L; Blood Urea Nitrogen 11 mg/dL (7-17); Calcium 9.5 mg/dL (8.4-10.2); Carbon Dioxide 22 mmol/L (22-30); Chloride 105 mmol/L (98-107); Glucose 108 mg/dL (74-99); Potassium 3.5 mmol/L (3.5-5.1); Sodium 139 mmol/L (137-145); Total Bilirubin 0.4 mg/dL (0.2-1.3); Total Protein 7.7 g/dL (6.3-8.2)
[2018-10-08] MEDS ORDERED: PROMETHAZINE INJ 25 MG in SODIUM CHLORIDE 0.9% 50 ML IVPB STA (23:29)
[2018-10-09] MEDS ORDERED: HYDROmorphone 0.5 MG/0.5 ML SYRINGE IVP STA (00:08)
[2018-10-09 01:02] VITALS: BP 119/72; PULSE 91; RESP 18
== END 2018-10-09 01:01 | disposition other institution (70) ==
LOC: EC 22:07
DX: K58.9 Irritable bowel syndrome, unspecified (principal); R00.0 Tachycardia, unspecified; K21.9 Gastro-esophageal reflux disease without esophagitis; F41.9 Anxiety disorder, unspecified; F17.200 Nicotine dependence, unspecified, uncomplicated; Z88.5 Allergy status to narcotic agent; Z91.030 Bee allergy status; Z79.899 Other long term (current) drug therapy; Z90.49 Acquired absence of other specified parts of digestive tract
CPT/HCPCS: 36415; 80053; 82150; 83690; 85025; 99284; 96365; 96375 ×6; 96361; J1200; J2550; J2765; J2405; J1885; C9113; J1170

== ENCOUNTER 2020-01-06 13:44 | Emergency (ER) | payer BC, MEDICARE ==
[2020-01-06 13:49] VITALS: RESP 18; TEMP 97.9
--- NOTE | 2020-01-06 14:10 | ED ---
General Adult HPI - General Chief complaint: Nausea/Vomiting/Diarrhea Stated complaint: vomitting Time Seen by Provider: 01/06/20 14:07 Source: patient Mode of arrival: ambulatory Limitations: no limitations - History of Present Illness Initial comments: 55-year-old female with history of cyclic vomiting syndrome and IBS presenting to the emergency department with chief complaint of symptom flareup. Patient states this happens to her occasionally but this time she waited longer to usual. Patient states her symptoms began 3 days ago she has been having nausea multiple episodes of nonbilious and nonbloody vomiting. She does report diarrhea as well. States this is typical for her during a flareup. She does report abdominal pain which she states is secondary to the vomiting. Denies any chest pain shortness of breath or back pain. States she is not able to keep down much. - Related Data Home Medications Medication Instructions Recorded Confirmed ALPRAZolam [Xanax] 0.25 mg PO QID PRN 06/30/15 01/06/20 Pantoprazole [Protonix] 40 mg PO BID 06/30/15 01/06/20 Atorvastatin [Lipitor] 80 mg PO HS 07/16/16 01/06/20 Temazepam [Restoril] 15 mg PO HS PRN 07/16/16 01/06/20 Hyoscyamine Sulfate [Levsin-Sl] 0.125 mg SL BID 01/19/17 01/06/20 Promethazine HCl 25 mg PO Q4H PRN 01/19/17 01/06/20 Lactulose 10 gm PO TID PRN 10/08/18 01/06/20 Previous Rx's Medication Instructions Recorded Ondansetron Odt [Zofran Odt] 4 mg PO Q8HR PRN #10 tab 01/06/20 Allergies Allergy/AdvReac Type Severity Reaction Status Date / Time venom-honey bee Allergy Anaphylaxis Verified 01/06/20 14:24 morphine AdvReac Nausea & Verified 01/06/20 14:24 Vomiting Review of Systems ROS Statement: Those systems with pertinent positive or pertinent negative responses have been documented in the HPI. ROS Other: All systems not noted in ROS Statement are negative. Past Medical History Past Medical History: GERD/Reflux Additional Past Medical History / Comment(s): cyclic vomiting syndrome; IBS; Gastroparesis History of Any Multi-Drug Resistant Organisms: None Reported Past Surgical History: Appendectomy, Hysterectomy Past Psychological History: Anxiety Past Alcohol Use History: None Reported Past Drug Use History: Marijuana General Exam Limitations: no limitations General appearance: alert, in no apparent distress Head exam: Present: atraumatic, normocephalic, normal inspection Eye exam: Present: normal appearance, PERRL, EOMI Pupils: Present: normal accommodation ENT exam: Present: normal exam, normal oropharynx, mucous membranes moist, TM's normal bilaterally, normal external ear exam Neck exam: Present: normal inspection, full ROM. Absent: tenderness Respiratory exam: Present: normal lung sounds bilaterally. Absent: respiratory distress, wheezes, rales Cardiovascular Exam: Present: regular rate, normal rhythm, normal heart sounds GI/Abdominal exam: Present: soft, tenderness (Diffuse abdominal tenderness, mild.). Absent: distended Extremities exam: Present: normal inspection, full ROM, normal capillary refill. Absent: tenderness Back exam: Present: normal inspection, full ROM. Absent: tenderness, CVA tenderness (R), CVA tenderness (L) Neurological exam: Present: alert, oriented X3, CN II-XII intact, normal gait Psychiatric exam: Present: normal affect, normal mood. Absent: depressed, agita yenifer Skin exam: Present: warm, dry, intact, normal color Course Vital Signs 01/06/20 01/06/20 01/06/20 13:45 15:46 16:38 Temperature 97.9 F Pulse Rate 98 101 H 80 Respiratory 18 18 18 Rate Blood Pressure 131/87 141/90 106/70 O2 Sat by Pulse 99 100 98 Oximetry Medical Decision Making - Medical Decision Making 54-year-old female with history of cyclic vomiting syndrome and IBS presenting to emergency Department with a chief complaint of flare. Physical examination, patient is vomiting in the emergency department. Patient was given 2 L of IV fluids, Ativan and Zofran. On reevaluation patient reports continuous symptoms. Patient was given Dilaudid, Phenergan. On reevaluation patient reports having much improvement in her symptoms. Patient states she feels much better and wants to go home. Strict return parameters were thoroughly discussed the patient was understanding and agreeable. Case discussed with physician. - Lab Data Result diagrams: 01/06/20 14:21 01/06/20 14:21 Lab Results 01/06/20 01/06/20 01/06/20 Range/Units 14:21 14:21 14:21 WBC 7.8 (3.8-10.6) k/uL RBC 4.63 (3.80-5.40) m/uL Hgb 13.4 (11.4-16.0) gm/dL Hct 40.9 (34.0-46.0) % MCV 88.5 (80.0-100.0) fL MCH 28.9 (25.0-35.0) pg MCHC 32.7 (31.0-37.0) g/dL RDW 13.8 (11.5-15.5) % Plt Count 220 (150-450) k/uL Neutrophils % 65 % Lymphocytes % 28 % Monocytes % 3 % Eosinophils % 1 % Basophils % 1 % Neutrophils # 5.1 (1.3-7.7) k/uL Lymphocytes # 2.1 (1.0-4.8) k/uL Monocytes # 0.3 (0-1.0) k/uL Eosinophils # 0.1 (0-0.7) k/uL Basophils # 0.1 (0-0.2) k/uL Sodium (137-145) mmol/L Potassium (3.5-5.1) mmol/L Chloride (98-107) mmol/L Carbon Dioxide (22-30) mmol/L Anion Gap mmol/L BUN (7-17) mg/dL Creatinine (0.52-1.04) mg/dL Est GFR (CKD-EPI)AfAm (>60 ml/min/1.73 sqM) Est GFR (CKD-EPI)NonAf (>60 ml/min/1.73 sqM) Glucose (74-99) mg/dL Calcium (8.4-10.2) mg/dL Total Bilirubin (0.2-1.3) mg/dL AST (14-36) U/L ALT (4-34) U/L Alkaline Phosphatase (38-126) U/L Total Protein (6.3-8.2) g/dL Albumin (3.5-5.0) g/dL Amylase (30-110) U/L Lipase (23-300) U/L Urine Color Light Yellow Urine Appearance Clear (Clear) Urine pH 7.5 (5.0-8.0) Ur Specific [place] 1.004 (1.001-1.035) Urine Protein Negative (Negative) Urine Glucose (UA) Negative (Negative) Urine Ketones Negative (Negative) Urine Blood Trace H (Negative) Urine Nitrite Negative (Negative) Urine Bilirubin Negative (Negative) Urine Urobilinogen <2.0 (<2.0) mg/dL Ur Leukocyte Esterase Negative (Negative) Urine RBC 4 (0-5) /hpf Urine WBC <1 (0-5) /hpf Ur Squamous Epith Cells 1 (0-4) /hpf Amorphous Sediment Rare H (None) /hpf Urine Bacteria Rare H (None) /hpf Urine Mucus Rare H (None) /hpf Urine HCG, Qual Not Detected (Not Detectd) 01/06/20 Range/Units 14:21 WBC (3.8-10.6) k/uL RBC (3.80-5.40) m/uL Hgb (11.4-16.0) gm/dL Hct (34.0-46.0) % MCV (80.0-100.0) fL MCH (25.0-35.0) pg MCHC (31.0-37.0) g/dL RDW (11.5-15.5) % Plt Count (150-450) k/uL Neutrophils % % Lymphocytes % % Monocytes % % Eosinophils % % Basophils % % Neutrophils # (1.3-7.7) k/uL Lymphocytes # (1.0-4.8) k/uL Monocytes # (0-1.0) k/uL Eosinophils # (0-0.7) k/uL Basophils # (0-0.2) k/uL Sodium 140 (137-145) mmol/L Potassium 4.3 (3.5-5.1) mmol/L Chloride 108 H (98-107) mmol/L Carbon Dioxide 23 (22-30) mmol/L Anion Gap 9 mmol/L BUN 8 (7-17) mg/dL Creatinine 0.60 (0.52-1.04) mg/dL Est GFR (CKD-EPI)AfAm >90 (>60 ml/min/1.73 sqM) Est GFR (CKD-EPI)NonAf >90 (>60 ml/min/1.73 sqM) Glucose 117 H (74-99) mg/dL Calcium 10.2 (8.4-10.2) mg/dL Total Bilirubin 0.5 (0.2-1.3) mg/dL AST 26 (14-36) U/L ALT 16 (4-34) U/L Alkaline Phosphatase 132 H (38-126) U/L Total Protein 8.1 (6.3-8.2) g/dL Albumin 4.6 (3.5-5.0) g/dL Amylase 92 (30-110) U/L Lipase 184 (23-300) U/L Urine Color Urine Appearance (Clear) Urine pH (5.0-8.0) Ur Specific [place] (1.001-1.035) Urine Protein (Negative) Urine Glucose (UA) (Negative) Urine Ketones (Negative) Urine Blood (Negative) Urine Nitrite (Negative) Urine Bilirubin (Negative) Urine Urobilinogen (<2.0) mg/dL Ur Leukocyte Esterase (Negative) Urine RBC (0-5) /hpf Urine WBC (0-5) /hpf Ur Squamous Epith Cells (0-4) /hpf Amorphous Sediment (None) /hpf Urine Bacteria (None) /hpf Urine Mucus (None) /hpf Urine HCG, Qual (Not Detectd) Disposition Clinical Impression: Abdominal pain, Nausea & vomiting Disposition: HOME SELF-CARE Condition: Stable Instructions (If sedation given, give patient instructions): Abdominal Pain (ED) Additional Instructions: Take prescribed medication. Follow up with a primary care physician. Return to emergency department if symptoms worsen. Prescriptions: Ondansetron Odt [Zofran Odt] 4 mg PO Q8HR PRN #10 tab PRN Reason: Nausea Is patient prescribed a controlled substance at d/c from ED?: No Referrals: Dequan Allen MD [Primary Care Provider] - 1-2 days Time of Disposition: 16:29
[2020-01-06] MEDS ORDERED: SODIUM CHLORIDE 0.9% 2,000 ML IV STA (14:17)
[2020-01-06] MEDS ORDERED: PANTOPRAZOLE 40 MG/10 ML VIAL IVP STA (14:17)
[2020-01-06] MEDS ORDERED: ONDANSETRON 4 MG/2 ML VIAL IVP STA (14:21)
[2020-01-06] MEDS ORDERED: LORazepam 2 MG/ML INJ IV STA (14:21)
[2020-01-06 14:34] LABS: Basophils # (A) 0.1 k/uL (0-0.2); Basophils % (A) 1 %; Eosinophils # (A) 0.1 k/uL (0-0.7); Eosinophils % (A) 1 %; HCT 40.9 % (34.0-46.0); HGB 13.4 gm/dL (11.4-16.0); Lymphocytes # (A) 2.1 k/uL (1.0-4.8); Lymphocytes % (A) 28 %; MCH 28.9 pg (25.0-35.0); MCHC 32.7 g/dL (31.0-37.0); MCV 88.5 fL (80.0-100.0); Monocytes # (A) 0.3 k/uL (0-1.0); Monocytes % (A) 3 %; Neutrophils # (A) 5.1 k/uL (1.3-7.7); Neutrophils % (A) 65 %; Platelet Count 220 k/uL (150-450); RBC 4.63 m/uL (3.80-5.40); RDW 13.8 % (11.5-15.5); WBC 7.8 k/uL (3.8-10.6)
[2020-01-06 14:44] LABS: ALT 16 U/L (4-34); AST 26 U/L (14-36); African American GFR (CKD) >90 (>60 ml/min/1.73 sqM); Albumin 4.6 g/dL (3.5-5.0); Alkaline Phosphatase 132 U/L (38-126); Amylase 92 U/L (30-110); Anion Gap 9 mmol/L; Blood Urea Nitrogen 8 mg/dL (7-17); Calcium 10.2 mg/dL (8.4-10.2); Carbon Dioxide 23 mmol/L (22-30); Chloride 108 mmol/L (98-107); Glucose 117 mg/dL (74-99); Lipase 184 U/L (23-300); Non-African American GFR(CKD) >90 (>60 ml/min/1.73 sqM); Potassium 4.3 mmol/L (3.5-5.1); Sodium 140 mmol/L (137-145); Total Bilirubin 0.5 mg/dL (0.2-1.3); Total Protein 8.1 g/dL (6.3-8.2)
[2020-01-06] MEDS ORDERED: PROMETHAZINE INJ 25 MG in SODIUM CHLORIDE 0.9% 50 ML IVPB STA (14:45)
[2020-01-06 14:55] LABS: Amorphous Sediment,Urine Rare /hpf; Appearance,Urine Clear (Clear); Bacteria,Urine Rare /hpf; Bilirubin,Urine Negative (Negative); Blood,Urine Trace (Negative); Color,Urine Light Yellow; Glucose,Urine (UA) Negative (Negative); Ketones,Urine Negative (Negative); Leukocyte Esterase,Urine Negative (Negative); Mucus,Urine Rare /hpf; Nitrite,Urine Negative (Negative); PH, Urine 7.5 (5.0-8.0); Protein,Urine Negative (Negative); RBC,Urine 4 /hpf (0-5); Specific Gravity,Urine 1.004 (1.001-1.035); Squamous Epithelial Cell,Urine 1 /hpf (0-4); Urobilinogen,Urine <2.0 mg/dL (<2.0); WBC,Urine <1 /hpf (0-5)
[2020-01-06] MEDS ORDERED: HYDROmorphone 0.5 MG/0.5 ML SYRINGE IVP STA (14:57)
[2020-01-06] MEDS ORDERED: METOCLOPRAMIDE 5 MG/ML 2 ML VIAL IVP STA (15:33)
[2020-01-06] MEDS ORDERED: diphenhydrAMINE 50 MG/ML 1 ML VIAL IVP STA (15:33)
[2020-01-06 16:43] VITALS: BP 106/70; PULSE 80
== END 2020-01-06 16:38 | disposition home or self-care (01) ==
LOC: EC 13:44
DX: R11.2 Nausea with vomiting, unspecified (principal); R10.9 Unspecified abdominal pain; K21.9 Gastro-esophageal reflux disease without esophagitis; R19.7 Diarrhea, unspecified; F41.9 Anxiety disorder, unspecified; Z90.49 Acquired absence of other specified parts of digestive tract; Z90.710 Acquired absence of both cervix and uterus; Z79.899 Other long term (current) drug therapy; Z88.5 Allergy status to narcotic agent; Z32.02 Encounter for pregnancy test, result negative; Z91.030 Bee allergy status
CPT/HCPCS: 36415; 93005; 80053; 82150; 83690; 85025; 81001; 81025; 99284; 96365; 96375 ×6; 96361; J2060; J1200; J2550; J2765; J2405; C9113; J1170

== ENCOUNTER 2020-01-15 12:31 | Emergency (ER) | payer BC, MEDICARE ==
[2020-01-15 13:29] VITALS: TEMP 98
[2020-01-15] MEDS ORDERED: ONDANSETRON 4 MG/2 ML VIAL IVP STA (13:54)
[2020-01-15] MEDS ORDERED: SODIUM CHLORIDE 0.9% 1,000 ML IV ONE (13:54)
[2020-01-15] MEDS ORDERED: PANTOPRAZOLE 40 MG/10 ML VIAL IVP STA (13:59)
[2020-01-15] MEDS ORDERED: LORazepam 2 MG/ML INJ IV STA (13:59)
--- NOTE | 2020-01-15 14:09 | ED ---
Nausea/Vomiting/Diarrhea HPI - General Chief complaint: Nausea/Vomiting/Diarrhea Stated complaint: cyclic vomiting syndrome Time Seen by Provider: 01/15/20 13:53 Source: patient Mode of arrival: ambulatory Limitations: no limitations - History of Present Illness Initial comments: To 4-year-old female presenting today for chief complaint of nausea vomiting blood streaks and vomiting. Patient states that she is history of gastroparesis as well as cyclic vomiting syndrome she states the accident about every 3 months she states that 2 weeks ago she had additional flare and had a come to the emergency department for treatment. Patient denies history of diabetes. Patient denies a chest pain shortness of breath. She states she does have some mild left lower quadrant tenderness. Patient denies any fever or upper respiratory symptoms. Patient wretching on exam, limiting history initially. - Related Data Home Medications Medication Instructions Recorded Confirmed ALPRAZolam [Xanax] 0.25 mg PO QID PRN 06/30/15 01/06/20 Pantoprazole [Protonix] 40 mg PO BID 06/30/15 01/06/20 Atorvastatin [Lipitor] 80 mg PO HS 07/16/16 01/06/20 Temazepam [Restoril] 15 mg PO HS PRN 07/16/16 01/06/20 Hyoscyamine Sulfate [Levsin-Sl] 0.125 mg SL BID 01/19/17 01/06/20 Promethazine HCl 25 mg PO Q4H PRN 01/19/17 01/06/20 Lactulose 10 gm PO TID PRN 10/08/18 01/06/20 Previous Rx's Medication Instructions Recorded Ondansetron Odt [Zofran Odt] 4 mg PO Q8HR PRN #10 tab 01/06/20 Amoxic-Pot Clav 875-125Mg 1 tab PO Q12HR 7 Days #14 tab 01/15/20 [Augmentin 875-125] Allergies Allergy/AdvReac Type Severity Reaction Status Date / Time venom-honey bee Allergy Anaphylaxis Verified 01/15/20 13:29 morphine AdvReac Nausea & Verified 01/15/20 13:29 Vomiting Review of Systems ROS Statement: Those systems with pertinent positive or pertinent negative responses have been documented in the HPI. ROS Other: All systems not noted in ROS Statement are negative. Past Medical History Past Medical History: GERD/Reflux Additional Past Medical History / Comment(s): cyclic vomiting syndrome; IBS; Gastroparesis History of Any Multi-Drug Resistant Organisms: None Reported Past Surgical History: Appendectomy, Hysterectomy Past Psychological History: Anxiety Smoking Status: Current every day smoker Past Alcohol Use History: None Reported Past Drug Use History: Marijuana General Exam - General Exam Comments Initial Comments: General: The patient is awake and alert, puking on exam Eye: Pupils are equal, round and reactive to light, extra-ocular movements are intact. No nystagmus. There is normal conjunctiva bilaterally. No signs of icterus. Ears, nose, mouth and throat: There are moist mucous membranes and no oral lesions. Neck: The neck is supple, there is no tenderness or JVD. Cardiovascular: There is a regular rate and rhythm. No murmur, rub or gallop is appreciated. Respiratory: Lungs are clear to auscultation, respirations are non-labored, br eath sounds are equal. No wheezes, stridor, rales, or rhonchi. Gastrointestinal: Soft, non-distended, minimal but present LLQ tenderness, abdomen without masses or organomegaly noted. There is no rebound or guarding present Musculoskeletal: Normal ROM, no tenderness. Strength 5/5. Sensation intact. Radial pulses equal bilaterally 2+. Neurological: A&O x 3. CN II-XII intact, There are no obvious motor or sensory deficits. Coordination appears grossly intact. Speech is normal. Skin: Skin is warm and dry and no rashes or lesions are noted. Psychiatric: Cooperative, appropriate mood & affect, normal judgment. Limitations: no limitations Course Vital Signs 01/15/20 01/15/20 13:26 16:31 Temperature 98.0 F Pulse Rate 107 H 100 Respiratory 22 16 Rate Blood Pressure 121/85 105/53 O2 Sat by Pulse 99 100 Oximetry - Reevaluation(s) Reevaluation #1: first reevaluation pt feeling almost all the way better. 01/15/20 Reevaluation #2: requesting phenergan so she does not vomit at home this evening, also requesting discharge. colitis discussed-pt appears nontoxic. pain subsided. 01/15/20 16:44 Medical Decision Making - Medical Decision Making Mild leukocytosis, no fever. Does not appear toxic. History cyclic vomiting. Patient symptoms resolved in ER. Colitis on CT. Patient denies bloody stools. Patient will be discharged with PCP and GI f/u. return for increasing pain. Patient agreeable discharged appearing well. Discussed case with Dr. Feldman who is agreeable to discharge with outpatient augmentin for colitis. - Lab Data Result diagrams: 01/15/20 14:27 01/15/20 14:27 Lab Results 01/15/20 01/15/20 01/15/20 Range/Units 14:27 14:27 14:27 WBC 13.1 H (3.8-10.6) k/uL RBC 5.03 (3.80-5.40) m/uL Hgb 14.8 (11.4-16.0) gm/dL Hct 43.9 (34.0-46.0) % MCV 87.3 (80.0-100.0) fL MCH 29.4 (25.0-35.0) pg MCHC 33.7 (31.0-37.0) g/dL RDW 13.9 (11.5-15.5) % Plt Count 285 (150-450) k/uL MPV 8.8 Neutrophils % 79 % Lymphocytes % 15 % Monocytes % 4 % Eosinophils % 0 % Basophils % 1 % Neutrophils # 10.3 H (1.3-7.7) k/uL Lymphocytes # 2.0 (1.0-4.8) k/uL Monocytes # 0.5 (0-1.0) k/uL Eosinophils # 0.1 (0-0.7) k/uL Basophils # 0.1 (0-0.2) k/uL PT 9.3 (9.0-12.0) sec INR 0.9 (<1.2) APTT 22.7 (22.0-30.0) sec Sodium 142 (137-145) mmol/L Potassium 4.6 (3.5-5.1) mmol/L Chloride 109 H (98-107) mmol/L Carbon Dioxide 21 L (22-30) mmol/L Anion Gap 12 mmol/L BUN 8 (7-17) mg/dL Creatinine 0.70 (0.52-1.04) mg/dL Est GFR (CKD-EPI)AfAm >90 (>60 ml/min/1.73 sqM) Est GFR (CKD-EPI)NonAf >90 (>60 ml/min/1.73 sqM) Glucose 133 H (74-99) mg/dL Calcium 10.6 H (8.4-10.2) mg/dL Total Bilirubin 0.5 (0.2-1.3) mg/dL AST 29 (14-36) U/L ALT 17 (4-34) U/L Alkaline Phosphatase 163 H (38-126) U/L Total Protein 9.2 H (6.3-8.2) g/dL Albumin 5.1 H (3.5-5.0) g/dL Disposition Clinical Impression: Cyclical vomiting, Colitis Disposition: HOME SELF-CARE Condition: Good Instructions (If sedation given, give patient instructions): Colitis (ED), Cyclic Vomiting Syndrome (ED) Additional Instructions: Please use medication as discussed. Please follow-up with family doctor in the next 2 days, recommend outpatient GI follow-up. Please return to emergency room if the symptoms increase or worsen or for any other concerns. Prescriptions: Amoxic-Pot Clav 875-125Mg [Augmentin 875-125] 1 tab PO Q12HR 7 Days #14 tab Is patient prescribed a controlled substance at d/c from ED?: No Referrals: Dequan Allen MD [Primary Care Provider] - 1-2 days Time of Disposition: 16:42
[2020-01-15 15:01] LABS: Basophils # (A) 0.1 k/uL (0-0.2); Basophils % (A) 1 %; Eosinophils # (A) 0.1 k/uL (0-0.7); Eosinophils % (A) 0 %; HCT 43.9 % (34.0-46.0); HGB 14.8 gm/dL (11.4-16.0); Lymphocytes % (A) 15 %; MCH 29.4 pg (25.0-35.0); MCHC 33.7 g/dL (31.0-37.0); MCV 87.3 fL (80.0-100.0); Mean Platelet Volume 8.8; Monocytes # (A) 0.5 k/uL (0-1.0); Monocytes % (A) 4 %; Neutrophils # (A) 10.3 k/uL (1.3-7.7); Neutrophils % (A) 79 %; Platelet Count 285 k/uL (150-450); RBC 5.03 m/uL (3.80-5.40); RDW 13.9 % (11.5-15.5); WBC 13.1 k/uL (3.8-10.6)
--- NOTE | 2020-01-15 15:04 | XR ---
EXAMINATION TYPE: XR KUB DATE OF EXAM: 01/15/2020 COMPARISON: 05/07/2018 HISTORY: Vomiting TECHNIQUE: One view abdominal series FINDINGS: The osseous structures are intact. The bowel gas pattern is nonspecific. Lung bases are clear. IMPRESSION: 1. Nonspecific abdomen. There is a paucity of bowel gas which can sometimes be associated with an il eus, enteritis or a fluid-filled bowel loops correlate clinically.
[2020-01-15 15:06] LABS: ALT 17 U/L (4-34); AST 29 U/L (14-36); African American GFR (CKD) >90 (>60 ml/min/1.73 sqM); Albumin 5.1 g/dL (3.5-5.0); Alkaline Phosphatase 163 U/L (38-126); Anion Gap 12 mmol/L; Blood Urea Nitrogen 8 mg/dL (7-17); Calcium 10.6 mg/dL (8.4-10.2); Carbon Dioxide 21 mmol/L (22-30); Chloride 109 mmol/L (98-107); Glucose 133 mg/dL (74-99); Non-African American GFR(CKD) >90 (>60 ml/min/1.73 sqM); Potassium 4.6 mmol/L (3.5-5.1); Sodium 142 mmol/L (137-145); Total Bilirubin 0.5 mg/dL (0.2-1.3); Total Protein 9.2 g/dL (6.3-8.2)
[2020-01-15 15:09] LABS: INR 0.9 (<1.2); Partial Thromboplastin Time 22.7 sec (22.0-30.0); Prothrombin Time 9.3 sec (9.0-12.0)
[2020-01-15] MEDS ORDERED: HYDROmorphone 0.5 MG/0.5 ML SYRINGE IVP STA (15:11)
[2020-01-15] MEDS ORDERED: METOCLOPRAMIDE 5 MG/ML 2 ML VIAL IVP STA (15:11)
[2020-01-15] MEDS ORDERED: SODIUM CHLORIDE 0.9% 1,000 ML IV SCH (15:15)
--- NOTE | 2020-01-15 15:42 | CT ---
EXAMINATION TYPE: CT abdomen pelvis w con DATE OF EXAM: 01/15/2020 COMPARISON: CT 02/21/2018 HISTORY: Cyclical vomiting syndrome and IBS CT DLP: 580.5 mGycm Automated exposure control for dose reduction was used. TECHNIQUE: Helical acquisition of images from the lung bases through the pelvis have been completed. CONTRAST: Performed without Oral Contrast and with IV Contrast, patient injected with 100 mL of Isovue 300. FINDINGS: LUNG BASES: No significant abnormality is appreciated. AORTA: No significant abnormality is appreciated. LIVER/GB: No significant interval change is appreciated. PANCREAS: No significant abnormality is seen. SPLEEN: No significant abnormality is seen. ADRENALS: No significant abnormality is seen. KIDNEYS: No significant abnormality is seen. REPRODUCTIVE ORGANS: Not seen BOWEL: Colonic wall thickening is present. No bowel obstruction. Appendix not seen with certainty FREE AIR: No Free Air visible. ASCITES: None visible. PELVIC ADENOPATHY: None visualized. RETROPERITONEAL ADENOPATHY: No Retroperitoneal Adenopathy visible. URINARY BLADDER: No significant abnormality is seen. OSSEOUS STRUCTURES: No significant abnormality is seen. IMPRESSION: CORRELATE FOR COLITIS
[2020-01-15] MEDS ORDERED: PROMETHAZINE INJ 25 MG/ML 1 ML VIAL IM STA (15:51)
[2020-01-15 16:32] VITALS: BP 105/53; PULSE 100; RESP 16
== END 2020-01-15 17:07 | disposition home or self-care (01) ==
LOC: EC 12:31
DX: K52.9 Noninfective gastroenteritis and colitis, unspecified (principal); F41.9 Anxiety disorder, unspecified; K21.9 Gastro-esophageal reflux disease without esophagitis; F17.200 Nicotine dependence, unspecified, uncomplicated; Z79.899 Other long term (current) drug therapy; Z90.49 Acquired absence of other specified parts of digestive tract; Z90.710 Acquired absence of both cervix and uterus; Z88.5 Allergy status to narcotic agent; Z91.030 Bee allergy status
CPT/HCPCS: 36415; 80053; 85025; 85610; 85730; 74018; 74177; 99284; 96374; 96375 ×4; 96372; 96361 ×2; J2060; J2550; J2765; J2405; C9113; J1170; Q9967

== ENCOUNTER 2021-08-11 13:04 | Emergency (ER) | payer BC, MEDICARE ==
[2021-08-11 13:17] VITALS: TEMP 98
[2021-08-11 15:39] LABS: Basophils % (A) 0 %; Eosinophils # (A) 0.1 k/uL (0-0.7); Eosinophils % (A) 1 %; HGB 13.8 gm/dL (11.4-16.0); Lymphocytes # (A) 2.4 k/uL (1.0-4.8); Lymphocytes % (A) 28 %; MCH 28.7 pg (25.0-35.0); MCHC 32.7 g/dL (31.0-37.0); MCV 87.7 fL (80.0-100.0); Mean Platelet Volume 8.3; Monocytes # (A) 0.3 k/uL (0-1.0); Monocytes % (A) 3 %; Neutrophils # (A) 5.6 k/uL (1.3-7.7); Neutrophils % (A) 65 %; Platelet Count 261 k/uL (150-450); RBC 4.79 m/uL (3.80-5.40); WBC 8.5 k/uL (3.8-10.6)
[2021-08-11 15:42] LABS: ALT 29 U/L (4-34); AST 30 U/L (14-36); African American GFR (CKD) >90 (>60 ml/min/1.73 sqM); Albumin 4.8 g/dL (3.5-5.0); Alkaline Phosphatase 147 U/L (38-126); Amylase 100 U/L (30-110); Anion Gap 11 mmol/L; Blood Urea Nitrogen 8 mg/dL (7-17); Calcium 9.5 mg/dL (8.4-10.2); Carbon Dioxide 25 mmol/L (22-30); Chloride 104 mmol/L (98-107); Glucose 108 mg/dL (74-99); Lipase 117 U/L (23-300); Non-African American GFR(CKD) >90 (>60 ml/min/1.73 sqM); Sodium 140 mmol/L (137-145); Total Bilirubin 0.4 mg/dL (0.2-1.3); Total Protein 8.7 g/dL (6.3-8.2)
[2021-08-11] MEDS ORDERED: HYDROmorphone 1 MG/ML 1 ML SYRINGE IVP STA ×2 (17:20→19:27)
[2021-08-11] MEDS ORDERED: SODIUM CHLORIDE 0.9% 1,000 ML IV STA (17:20)
--- NOTE | 2021-08-11 17:26 | ED ---
General Adult HPI - General Chief complaint: Nausea/Vomiting/Diarrhea Stated complaint: IBS flare Time Seen by Provider: 08/11/21 14:57 Source: patient Mode of arrival: ambulatory Limitations: no limitations - History of Present Illness Initial comments: Dictation was produced using [place] dictation software. please excuse any grammatical, word or spelling errors. Chief Complaint: 56-year-old female presents emergency Department with IBS flare History of Present Illness: 56-year-old female she has extensive history of irritable bowel syndrome. Patient states that she has been evaluated multiple occasions by specialists and was diagnosed with irritable bowel syndrome. Patient states she has not had IBS attack in several months. Patient states that she's been very stressed out for the last 48 hours which she reports is her usual trigger for her irritable bowel syndrome. Patient states she is having nonbilious nonbloody vomiting and nonbilious not bloody diarrhea. She does complain of diffuse abdominal pain. She states that her symptoms today are typical for usual IBS symptoms. Denies any fever or constitutional symptoms. The ROS documented in this emergency department record has been reviewed and confirmed by me. Those systems with pertinent positive or negative responses have been documented in the HPI. All other systems are other negative and/or noncontributory. PHYSICAL EXAM: General Impression: Alert and oriented x3, not in acute distress HEENT: Normocephalic atraumatic, extra-ocular movements intact, pupils equal and reactive to light bilaterally, mucous membranes moist. Cardiovascular: Heart regular rate and rhythm Chest: Able to complete full sentences, no retractions, no tachypnea Abdomen: abdomen soft, mild diffuse abdominal tenderness, non-distended, no organomegaly Musculoskeletal: Pulses present and equal in all extremities, no peripheral edema Motor: no focal deficits noted Neurological: CN II-XII grossly intact, no focal motor or sensory deficits noted Skin: Intact with no visualized rashes Psych: Normal affect and mood ED course: 56-year-old female with reported IBS flare. Patient is extensor. History of irritable bowel syndrome. As upon arrival are within acceptable limits. Patient's well-appearing. Chart review shows that patient has been seen in the emergency department for IBS symptoms on multiple occasions. Laboratory evaluation obtained. CBC, metabolic panel is unremarkable. Urinalysis is negative. KUB x-ray is nonacute. Patient given IV analgesia, antiemetics and IV fluids. Patient reevaluated at bedside at 7:30 PM and still having some symptoms though slightly improved. Patient reevaluated at 8:50 PM. After another dose of analgesics. Patient states she feels significantly improved. She wants discharge to continue to res t at home. Patient advised to follow-up with her primary care doctor. - Related Data Home Medications Medication Instructions Recorded Confirmed ALPRAZolam [Xanax] 0.25 mg PO QID PRN 06/30/15 08/11/21 Pantoprazole [Protonix] 40 mg PO BID 06/30/15 08/11/21 Atorvastatin [Lipitor] 80 mg PO HS 07/16/16 08/11/21 Temazepam [Restoril] 15 mg PO HS 07/16/16 08/11/21 Promethazine HCl 25 mg PO Q4H PRN 01/19/17 08/11/21 Escitalopram Oxalate [Lexapro] 10 mg PO DAILY 08/11/21 08/11/21 Ondansetron Odt [Zofran Odt] 8 mg PO Q8HR PRN 08/11/21 08/11/21 Allergies Allergy/AdvReac Type Severity Reaction Status Date / Time venom-honey bee Allergy Anaphylaxis Verified 08/11/21 18:47 morphine AdvReac Nausea & Verified 08/11/21 18:47 Vomiting Review of Systems ROS Statement: Those systems with pertinent positive or pertinent negative responses have been documented in the HPI. ROS Other: All systems not noted in ROS Statement are negative. Past Medical History Past Medical History: GERD/Reflux Additional Past Medical History / Comment(s): cyclic vomiting syndrome; IBS; Gastroparesis History of Any Multi-Drug Resistant Organisms: None Reported Past Surgical History: Appendectomy, Hysterectomy Past Psychological History: Anxiety Smoking Status: Current every day smoker Past Alcohol Use History: None Reported Past Drug Use History: Marijuana General Exam Limitations: no limitations Course Vital Signs 08/11/21 08/11/21 08/11/21 13:14 18:28 19:37 Temperature 98.0 F Pulse Rate 83 73 88 Respiratory 20 16 16 Rate Blood Pressure 120/78 127/77 137/76 O2 Sat by Pulse 98 96 Oximetry Medical Decision Making - Lab Data Result diagrams: 08/11/21 15:24 08/11/21 15:24 Lab Results 08/11/21 08/11/21 08/11/21 Range/Units 15:24 15:24 17:02 WBC 8.5 (3.8-10.6) k/uL RBC 4.79 (3.80-5.40) m/uL Hgb 13.8 (11.4-16.0) gm/dL Hct 42.0 (34.0-46.0) % MCV 87.7 (80.0-100.0) fL MCH 28.7 (25.0-35.0) pg MCHC 32.7 (31.0-37.0) g/dL RDW 15.0 (11.5-15.5) % Plt Count 261 (150-450) k/uL MPV 8.3 Neutrophils % 65 % Lymphocytes % 28 % Monocytes % 3 % Eosinophils % 1 % Basophils % 0 % Neutrophils # 5.6 (1.3-7.7) k/uL Lymphocytes # 2.4 (1.0-4.8) k/uL Monocytes # 0.3 (0-1.0) k/uL Eosinophils # 0.1 (0-0.7) k/uL Basophils # 0.0 (0-0.2) k/uL Sodium 140 (137-145) mmol/L Potassium 4.0 (3.5-5.1) mmol/L Chloride 104 (98-107) mmol/L Carbon Dioxide 25 (22-30) mmol/L Anion Gap 11 mmol/L BUN 8 (7-17) mg/dL Creatinine 0.66 (0.52-1.04) mg/dL Est GFR (CKD-EPI)AfAm >90 (>60 ml/min/1.73 sqM) Est GFR (CKD-EPI)NonAf >90 (>60 ml/min/1.73 sqM) Glucose 108 H (74-99) mg/dL Calcium 9.5 (8.4-10.2) mg/dL Total Bilirubin 0.4 (0.2-1.3) mg/dL AST 30 (14-36) U/L ALT 29 (4-34) U/L Alkaline Phosphatase 147 H (38-126) U/L Total Protein 8.7 H (6.3-8.2) g/dL Albumin 4.8 (3.5-5.0) g/dL Amylase 100 (30-110) U/L Lipase 117 (23-300) U/L Urine Color Yellow Urine Appearance Clear (Clear) Urine pH 6.0 (5.0-8.0) Ur Specific [place] 1.017 (1.001-1.035) Urine Protein 1+ H (Negative) Urine Glucose (UA) Negative (Negative) Urine Ketones Negative (Negative) Urine Blood Trace H (Negative) Urine Nitrite Negative (Negative) Urine Bilirubin Negative (Negative) Urine Urobilinogen <2.0 (<2.0) mg/dL Ur Leukocyte Esterase Negative (Negative) Urine RBC 5 (0-5) /hpf Urine WBC 1 (0-5) /hpf Ur Squamous Epith Cells 1 (0-4) /hpf Urine Mucus Occasional H (None) /hpf Disposition Clinical Impression: IBS (irritable bowel syndrome) Disposition: HOME SELF-CARE Condition: Fair Instructions (If sedation given, give patient instructions): Acute Nausea and Vomiting (ED), Acute Diarrhea (ED) Is patient prescribed a controlled substance at d/c from ED?: No Referrals: Dequan Allen MD [Primary Care Provider] - 1-2 days Time of Disposition: 20:49
[2021-08-11] MEDS: PROMETHAZINE 25 MG TAB PO STA ×2 (17:35→17:43)
[2021-08-11] MEDS ORDERED: PROCHLORPERAZINE INJ 10 MG/2 ML VIAL IVP STA (17:40)
[2021-08-11 17:58] LABS: Appearance,Urine Clear (Clear); Bilirubin,Urine Negative (Negative); Blood,Urine Trace (Negative); Color,Urine Yellow; Glucose,Urine (UA) Negative (Negative); Ketones,Urine Negative (Negative); Leukocyte Esterase,Urine Negative (Negative); Mucus,Urine Occasional /hpf; Nitrite,Urine Negative (Negative); Protein,Urine 1+ (Negative); RBC,Urine 5 /hpf (0-5); Specific Gravity,Urine 1.017 (1.001-1.035); Squamous Epithelial Cell,Urine 1 /hpf (0-4); Urobilinogen,Urine <2.0 mg/dL (<2.0); WBC,Urine 1 /hpf (0-5)
[2021-08-11 18:30] VITALS: RESP 16
--- NOTE | 2021-08-11 18:43 | XR ---
EXAMINATION TYPE: XR KUB DATE OF EXAM: 08/11/2021 COMPARISON: 01/15/2020 HISTORY: Pain TECHNIQUE: 2 views upright FINDINGS: Bowel gas pattern is normal. No sign of intestinal obstruction or pneumoperitoneum. Fecal p attern is normal. No evidence of a mass. There are no pathologic calcifications over the kidneys. IMPRESSION: Nonacute abdomen. No change.
[2021-08-11] MEDS ORDERED: ONDANSETRON 4 MG/2 ML VIAL IVP STA (18:46)
[2021-08-11 19:38] VITALS: BP 137/76; PULSE 88
== END 2021-08-11 21:21 | disposition home or self-care (01) ==
LOC: EC 13:04
DX: K58.9 Irritable bowel syndrome, unspecified (principal); Z79.83 Long term (current) use of bisphosphonates; K21.9 Gastro-esophageal reflux disease without esophagitis; F17.200 Nicotine dependence, unspecified, uncomplicated; Z91.030 Bee allergy status; Z88.5 Allergy status to narcotic agent
CPT/HCPCS: 36415; 80053; 82150; 83690; 85025; 81001; 74018; 99284; 96374; 96375; 96376; 96361; J0780; J2405; J1170